=== PATIENT | female | born 1955 | race Two or more races ===

== ENCOUNTER 2017-02-22 07:32 | Emergency (ER) | payer MEDICAID ==
[2017-02-22 07:44] VITALS: BP 144/87
[2017-02-22] MEDS ORDERED: IBUPROFEN 800 MG TABLET PO ONE (08:18)
--- NOTE | 2017-02-22 08:18 | ER Document Report ---
ED General - General Chief Complaint: Arm Pain Stated Complaint: ARM PAIN Time Seen by Provider: 02/22/17 07:58 Mode of Arrival: Ambulatory Information source: Patient Notes: 61-year-old female who donated blood 1 week ago presents with complaints of bruising of her right antecubital where the blood was drawn. Patient was seen at an outside facility and they sent her in for evaluation for nerve injury versus a blood clot. Patient denies a history of blood clots denies any DVT or PE risk factors patient does note that it hurts in her fingers when she spreads and closes them and that it radiates down from her antecubital TRAVEL OUTSIDE OF THE [place] IN LAST 30 DAYS: No - HPI Onset: Last week Onset/Duration: Persistent Quality of pain: Achy Severity: Mild Pain Level: 1 Associated symptoms: None Exacerbated by: Denies Relieved by: Denies Similar symptoms previously: No Recently seen / treated by doctor: Yes - Related Data Allergies/Adverse Reactions: No Known Allergies Allergy (Verified 02/22/17 08:28) Past Medical History - Social History Smoking Status: Never Smoker Cigarette use (# per day): No Chew tobacco use (# tins/day): No Smoking Education Provided: No Family History: Reviewed & Not Pertinent Patient has suicidal ideation: No Patient has homicidal ideation: No Renal/ Medical History: Denies: Hx Peritoneal Dialysis Review of Systems - Review of Systems Notes: REVIEW OF SYSTEMS: CONSTITUTIONAL : Denies fever, chills, or sweats. Denies recent illness. EENT: Denies eye, ear, throat, or mouth pain or symptoms. Denies nasal or sinus congestion or discharge. Denies throat, tongue, or mouth swelling or difficulty swallowing. CARDIOVASCULAR: Denies chest pain. Denies palpitations or racing or irregular heart beat. Denies ankle edema. RESPIRATORY: Denies cough, cold, or chest congestion. Denies shortness of breath, difficulty breathing, or wheezing. GASTROINTESTINAL: Denies abdominal pain or distention. Denies nausea, vomiting , or diarrhea. Denies blood in vomitus, stools, or per rectum. Denies black, tarry stools. Denies constipation. GENITOURINARY: Denies difficulty urinating, painful urination, burning, frequency, blood in urine, or discharge. FEMALE GENITOURINARY: Denies vaginal bleeding, heavy or abnormal periods, irregular periods. Denies vaginal discharge or odor. MUSCULOSKELETAL: Denies back or neck pain or stiffness. Denies joint pain or swelling. SKIN: Admits to bruising of the antecubital HEMATOLOGIC : Denies easy bruising or bleeding. LYMPHATIC: Denies swollen, enlarged glands. NEUROLOGICAL: Denies confusion or altered mental status. Denies passing out or loss of consciousness. Denies dizziness or lightheadedness. Denies headache. Denies weakness or paralysis or loss of use of either side. Denies problems with gait or speech. Denies sensory loss, numbness, or tingling. Denies seizures. PSYCHIATRIC: Denies anxiety or stress. Denies depression, suicidal ideation, or homicidal ideation. ALL OTHER SYSTEMS REVIEWED AND NEGATIVE. PHYSICAL EXAMINATION: GENERAL: Well-appearing, well-nourished and in no acute distress. HEAD: Atraumatic, normocephalic. EYES: Pupils equal round and reactive to light, extraocular movements intact, conjunctiva are normal. ENT: Nares patent, oropharynx clear without exudates. Moist mucous membranes. NECK: Normal range of motion, supple without lymphadenopathy LUNGS: Breath sounds clear to auscultation bilaterally and equal. No wheezes rales or rhonchi. HEART: Regular rate and rhythm without murmurs ABDOMEN: Soft, nontender, nondistended abdomen. No guarding, no rebound. No masses appreciated. Female : deferred Musculoskeletal: Normal range of motion, no pitting or edema. No cyanosis. NEUROLOGICAL: Cranial nerves grossly intact. Normal speech, normal gait. Normal sensory, motor exams PSYCH: Normal mood, normal affect. SKIN: There is ecchymosis of the antecubital with no palpable thrombophlebitis or deep vein thrombosis Dictation was performed using [employer] voice recognition software Physical Exam - Vital signs Vitals: Temp Pulse Resp BP Pulse Ox 97.5 F 93 16 144/87 H 94 02/22/17 07:42 02/22/17 07:42 02/22/17 07:42 02/22/17 07:42 02/22/17 07:42 Course - Re-evaluation Re-evalutation: 02/22/17 13:48 Patient is having pain secondary to the swelling that is impinging on the nerve. Donating blood would not lead to a deep vein thrombosis nor would structural fitter to significant nerve injury. I believe this is all secondary to the bruising. Patient has been given very strict return precautions denies any DVT or PE risk factors and is stable for discharge After performing a Medical Screening Examination, I estimate there is LOW risk for OPEN FRACTURE, COMPARTMENT SYNDROME, TENDON RUPTURE, ACUTE NEUROVASCULAR INJURY, or RETAINED FOREIGN BODY, thus I consider the discharge disposition reasonable. Also, there is no evidence or peritonitis, sepsis, or toxicity. I have reevaluated this patient multiple times and no significant life threatening changes are noted. The patient and I have discussed the diagnosis and risks, and we agree with discharging home with close follow-up with the understanding that symptoms and presentations can change. We also discussed returning to the Emergency Department immediately if new or worsening symptoms occur. We have discussed the symptoms which are most concerning (e.g., changing or worsening pain, fever, numbness, weakness, cool or painful digits) that necessitate immediate return. - Vital Signs Vital signs: Temp Pulse Resp BP Pulse Ox 97.5 F 93 16 144/87 H 94 02/22/17 07:42 02/22/17 07:42 02/22/17 07:42 02/22/17 07:42 02/22/17 07:42 Discharge - Discharge Clinical Impression: Bruising, Neuropathy Condition: Stable Disposition: HOME, SELF-CARE Additional Instructions: Please follow-up with your primary care physician for reevaluation or return immediately for any other concerns Prescriptions: Ibuprofen 800 mg PO Q8 #30 tablet Referrals: JAYANT COCHRAN PA-C [Primary Care Provider] - Follow up as needed
== END 2017-02-22 08:43 | disposition home or self-care (01) ==
LOC: ER 07:32
DX: S50.11XA Contusion of right forearm, initial encounter (principal); Y84.7 Blood-sampling as the cause of abnormal reaction of the patient, or of later complication, without mention of misadventure at the time of the procedure; G62.9 Polyneuropathy, unspecified
CPT/HCPCS: 99283; J3490

== ENCOUNTER 2017-02-28 08:56 | Emergency (ER) | payer MEDICAID ==
--- NOTE | 2017-02-28 09:28 | ER Document Report ---
ED Flu Like - General Chief Complaint: Flu Symptoms Stated Complaint: COUGH/CHEST BURNING Time Seen by Provider: 02/28/17 09:22 Mode of Arrival: Ambulatory Information source: Patient TRAVEL OUTSIDE OF THE [place] IN LAST 30 DAYS: No - HPI Patient complains to provider of: Cough, sneezing, body aches Onset: Yesterday Timing/Duration: Persistent Quality of pain: Achy Severity: Mild Pain Level: 1 Associated symptoms: Body/muscle aches, Nonproductive cough Notes: Patient is a 61-year-old female who presents to the emergency room complaining of nasal congestion, nonproductive cough, sneezing and body aches that have been going on for the past 2-3 days, she recently moved to the area from [place] approximately 3 months ago and has not yet established primary care, she has a history of depression, she is not a smoker - Related Data Allergies/Adverse Reactions: No Known Allergies Allergy (Verified 02/28/17 09:05) Past Medical History - General Information source: Patient - Social History Smoking Status: Former Smoker Chew tobacco use (# tins/day): No Frequency of alcohol use: Rare Drug Abuse: None Family History: Reviewed & Not Pertinent Renal/ Medical History: Denies: Hx Peritoneal Dialysis Psychiatric Medical History: Reports: Hx Depression Past Surgical History: Reports: Hx Cholecystectomy - gallbladder sx in past Review of Systems - Review of Systems Constitutional: See HPI EENT: See HPI Cardiovascular: No symptoms reported Respiratory: See HPI Gastrointestinal: No symptoms reported Genitourinary: No symptoms reported Female Genitourinary: No symptoms reported Musculoskeletal: No symptoms reported Skin: No symptoms reported Hematologic/Lymphatic: No symptoms reported Neurological/Psychological: No symptoms reported -: Yes All other systems reviewed and negative Physical Exam - Vital signs Vitals: Temp Pulse Resp BP Pulse Ox 98.1 F 97 12 148/72 H 97 02/28/17 09:05 02/28/17 09:05 02/28/17 09:05 02/28/17 09:05 02/28/17 09:05 Interpretation: Normal - General General appearance: Appears well, Alert - HEENT Head: Normocephalic, Atraumatic Eyes: Normal Pupils: PERRL - Respiratory Respiratory status: No respiratory distress Chest status: Nontender Breath sounds: Normal Chest palpation: Normal - Cardiovascular Rhythm: Regular Heart sounds: Normal auscultation Murmur: No - Abdominal Inspection: Normal Distension: No distension Bowel sounds: Normal Tenderness: Nontender Organomegaly: No organomegaly - Back Back: Normal, Nontender - Extremities General upper extremity: Normal inspection, Nontender, Normal color, Normal ROM , Normal temperature General lower extremity: Normal inspection, Nontender, Normal color, Normal ROM , Normal temperature, Normal weight bearing. No: Shahriar's sign - Neurological Neuro grossly intact: Yes Cognition: Normal Orientation: AAOx4 [place] Coma Scale Eye Opening: Spontaneous [place] Coma Scale Verbal: Oriented Stephane Coma Scale Motor: Obeys Commands Stephane Coma Scale Total: 15 Speech: Normal Motor strength normal: LUE, RUE, LLE, RLE Sensory: Normal - Psychological Associated symptoms: Normal affect, Normal mood - Skin Skin Temperature: Warm Skin Moisture: Dry Skin Color: Normal Course - Re-evaluation Re-evalutation: 02/28/17 12:55 Lab and imaging findings discussed with patient which are unremarkable, initial chest x-ray showed a possible nodule in the right lung, however CTA shows no evidence of any abnormality in the lungs, patient was advised of this and discharged with instructions for follow-up, advised to return if any additional concerns, patient acknowledges understanding and agreement with this plan - Vital Signs Vital signs: Temp Pulse Resp BP Pulse Ox 98.1 F 97 12 148/72 H 97 02/28/17 09:05 02/28/17 09:05 02/28/17 09:05 02/28/17 09:05 02/28/17 09:05 - Laboratory Result Diagrams: 02/28/17 10:39 02/28/17 10:39 Laboratory results interpreted by me: 02/28/17 10:39 RDW 14.8 H Eosinophils % 13.2 H Absolute Eosinophils 1.2 H - Diagnostic Test Radiology reviewed: Image reviewed, Reports reviewed - EKG Interpretation by Me EKG shows normal: Sinus rhythm Rate: Normal Rhythm: NSR Discharge - Discharge Clinical Impression: Viral upper respiratory illness Condition: Stable Disposition: HOME, SELF-CARE Instructions: Upper Respiratory Illness ([facility]), Viral Syndrome ([facility]) Additional Instructions: Follow up with your primary care provider in one to 2 days. Return to the emergency room immediately if symptoms worsen or any additional concerns.
--- NOTE | 2017-02-28 10:12 | RADIOLOGY REPORT (SQ) ---
EXAM DESCRIPTION: CHEST PA/LAT COMPLETED DATE/TIME: 02/28/2017 10:01 am REASON FOR STUDY: cough COMPARISON: None. EXAM PARAMETERS: NUMBER OF VIEWS: two views TECHNIQUE: Digital Frontal and Lateral radiographic views of the chest acquired. RADIATION DOSE: NA LIMITATIONS: none FINDINGS: LUNGS AND PLEURA: No infiltrate or effusion. There is questionably an 8 mm nodule in the right lung laterally projected there over the tip of the scapula. This is not appreciated on the lat eral view. MEDIASTINUM AND HILAR STRUCTURES: No masses or contour abnormalities. HEART AND VASCULAR STRUCTURES: Heart normal size. No evidence for failure. BONES: No acute findings. HARDWARE: None in the chest. OTHER: No other significant finding. IMPRESSION: 1. No acute cardiopulmonary disease. 2. Questionable 8 mm nodule in the right lung. Consider CT for further evaluation. TECHNICAL DOCUMENTATION: JOB ID: [id number] [employer]- All Rights Reserved
[2017-02-28 10:57] LABS: ABSOLUTE BASOPHILS # (AUTO) 0.1 10^3/uL (0.0-0.2); ABSOLUTE EOSINOPHILS # (AUTO) 1.2 10^3/uL (0.0-0.6); ABSOLUTE LYMPHOCYTES (AUTO) 1.9 10^3/uL (0.5-4.7); ABSOLUTE MONOCYTES (AUTO) 0.6 10^3/uL (0.1-1.4); ABSOLUTE NEUT (AUTO) 5.3 10^3/uL (1.7-8.2); BASOPHILS % (AUTO) 0.8 % (0-2); EOSINOPHILS % (AUTO) 13.2 % (0-6); HEMATOCRIT 39.3 % (36.0-47.0); HEMOGLOBIN 13.5 g/dL (12.0-15.5); HGB HCT DIFFERENCE 1.2; LYMPHOCYTES % (AUTO) 21.1 % (13-45); MEAN CORPUSCULAR HEMOGLOBIN 31.8 pg (27.0-33.4); MEAN CORPUSCULAR HGB CONC 34.5 g/dL (32.0-36.0); MEAN CORPUSCULAR VOLUME 92 fl (80-97); MONOCYTES % (AUTO) 6.9 % (3-13); RED BLOOD COUNT 4.26 10^6/uL (3.72-5.28); RED CELL DISTRIBUTION WIDTH 14.8 % (11.5-14.0); WHITE BLOOD COUNT 9.1 10^3/uL (4.0-10.5)
[2017-02-28 11:24] LABS: ANION GAP 12 (5-19); BLOOD UREA NITROGEN 15 mg/dL (7-20); CALCIUM 9.9 mg/dL (8.4-10.2); CARBON DIOXIDE 26 mmol/L (22-30); CHLORIDE 103 mmol/L (98-107); CREATININE RESULT 0.59 mg/dL (0.52-1.25); GLUCOSE 82 mg/dL (75-110); POTASSIUM 4.3 mmol/L (3.6-5.0); SODIUM 141.2 mmol/L (137-145)
--- NOTE | 2017-02-28 12:49 | RADIOLOGY REPORT (SQ) ---
EXAM DESCRIPTION: CTA CHEST COMPLETED DATE/TIME: 02/28/2017 12:30 pm REASON FOR STUDY: SOB COMPARISON: Chest radiograph 02/28/2017 TECHNIQUE: CT scan of the chest performed using helical scanning technique with dynamic intravenous contrast injection. Images reviewed with lung, soft tissue and bone windows. Reconstructed coronal and sagittal MPR images reviewed. Additional 3 dimensional post-processing performed to develop Maximal Intensity Projection images (OK P). All images stored on PACS. All CT scanners at this facility use dose modulation, iterative reconstruction, and/or weight based d osing when appropriate to reduce radiation dose to as low as reasonably achievable (ALARA). [facility]: Dose Right [facility]: CareDose [facility]: Dose Right [facility]: Teradose 4D [facility]: LSEO CONTRAST TYPE AND DOSE: contrast/concentration: Isovue 370.00 mg/ml; Total Contrast Delivered: 73.0 ml; Total Saline Delivered: 105.7 ml RENAL FUNCTION: Creatinine 0.6 BUN 15 RADIATION DOSE: Up-to-date CT equipment and radiation dose reduction techniques were employed. CTDIv ol: 19.0 - 19.8 mGy. DLP: 682 mGy-cm. . LIMITATIONS: None. FINDINGS: LUNGS AND PLEURA: No masses, infiltrates, pneumothorax. No pleural effusions, calcificati ons. AORTA AND GREAT VESSELS: No aneurysm or dissection. HEART: No pericardial effusion. PULMONARY ARTERIES: No emboli visualized in the main pulmonary arteries or the segmental branches. HILAR AND MEDIASTINAL STRUCTURES: No identified masses or abnormal nodes. HARDWARE: None in the chest. UPPER ABDOMEN: No significant findings. Limited exam. THYROID AND OTHER SOFT TISSUES: No masses. No adenopathy. BONES: There are bridging osteophytes in the thoracic spine. No acute abnormality is present. 3D MIPS: Confirm above findings. OTHER: No other significant finding. IMPRESSION: 1. There is no evidence of pulmonary embolus. There is no pulmonary nodule. 2. There is thoracic spondylosis. TECHNICAL DOCUMENTATION: JOB ID: [id number] Quality ID # [id number]: Final reports with documentation of one or more dose reduction techniques (e.g., Au tomated exposure control, adjustment of the mA and/or kV according to patient size, use of iterative reconstruction technique) 2010 [employer]- All Rights Reserved
[2017-02-28 13:06] VITALS: BP 151/89
--- NOTE | 2017-02-28 13:48 | EKG REPORT ---
SEVERITY:- BORDERLINE ECG - SINUS RHYTHM LVH BY VOLTAGE NONSPECIFIC ST-T CHANGES- INFERIOR LEADS : Confirmed by: Lito Houston MD 28-Feb-2017 13:47:20
== END 2017-02-28 13:04 | disposition home or self-care (01) ==
LOC: ER 08:56
DX: J06.9 Acute upper respiratory infection, unspecified (principal)
CPT/HCPCS: 36415; 71020; 71275; 80048; 85025; 93005; 93010; 99284

== ENCOUNTER 2017-03-15 09:40 | Emergency (ER) | payer MEDICAID ==
--- NOTE | 2017-03-15 10:03 | ER Document Report ---
HPI - HPI Patient complains to provider of: ankle injury Onset: Other - 2 wks Onset/Duration: Persistent Quality of pain: Achy Pain Level: 2 Context: Patient states that she has had left ankle pain for the past 2 weeks. Patient denies any specific injury. Patient states that she may have sprained her ankle. Patient had continued pain with ambulation. Associated Symptoms: Other - Left ankle pain Exacerbated by: Standing, Movement, Walking Relieved by: Denies Similar symptoms previously: No Recently seen / treated by doctor: No - ROS ROS below otherwise negative: Yes Systems Reviewed and Negative: Yes All other systems reviewed and negative - MUSCULOSKELETAL Musculoskeletal: REPORTS: Extremity pain, Swelling - DERM Skin Color: Normal Skin Problems: None Past Medical History - General Information source: Patient - Social History Smoking Status: Never Smoker Frequency of alcohol use: None Drug Abuse: None Occupation: none Family History: Reviewed & Not Pertinent Renal/ Medical History: Denies: Hx Peritoneal Dialysis Psychiatric Medical History: Reports: Hx Depression Past Surgical History: Reports: Hx Cholecystectomy - gallbladder sx in past Vertical Provider Document - CONSTITUTIONAL Agree With Documented VS: Yes Exam Limitations: No Limitations General Appearance: WD/WN, No Apparent Distress - INFECTION CONTROL TRAVEL OUTSIDE OF THE [place] IN LAST 30 DAYS: No - HEENT HEENT: Atraumatic, Normocephalic - NECK Neck: Normal Inspection - RESPIRATORY Respiratory: No Respiratory Distress O2 Sat by Pulse Oximetry: 96 - CARDIOVASCULAR Pulses: Normal: Dorsalis pedis - MUSCULOSKELETAL/EXTREMETIES Musculoskeletal/Extremeties: MAEW, FROM, Tender - Left ankle tenderness over lateral malleolar area, Edema - 1+ left lateral ankle - NEURO Level of Consciousness: Awake, Alert, Appropriate Motor/Sensory: No Motor Deficit - DERM Integumentary: Warm, Dry, No Rash Course - Re-evaluation Re-evalutation: 03/15/17 The patient has been informed that they may have pre-hypertension or hypertension based on a blood pressure reading in the emergency department. I recommend that patient call the primary care provider listed on their discharge instructions or a physician of their choice by this week to arrange follow-up for further evaluation of possible pre-hypertension or hypertension. - Vital Signs Vital signs: Temp Pulse Resp BP Pulse Ox 97.8 F 86 18 145/79 H 96 03/15/17 09:47 03/15/17 09:47 03/15/17 09:47 03/15/17 09:47 03/15/17 09:47 - Diagnostic Test Radiology reviewed: Image reviewed, Reports reviewed Discharge - Discharge Clinical Impression: Elevated blood pressure reading Ankle sprain Qualifiers: Encounter type: initial encounter Involved ligament of ankle: unspecified ligament Laterality: left Qualified Code(s): S93.402A - Sprain of unspecified ligament of left ankle, initial encounter Condition: Stable Disposition: HOME, SELF-CARE Instructions: Ankle Stirrup Splint ([facility]), Use of Crutches ([facility]), Ice Packs ([facility] ), Sprained Ankle ([facility]) Additional Instructions: Return immediately for any new or worsening symptoms Followup with your primary care provider, call tomorrow to make a followup appointment Follow-up with orthopedic doctor for further evaluation, call today for an appointment Prescriptions: Naproxen [Naprosyn 250 Nmg Tablet] 1 tab PO BID #14 tablet Forms: Elevated Blood Pressure Referrals: [facility] [Provider Group] - Follow up tomorrow
--- NOTE | 2017-03-15 11:16 | RADIOLOGY REPORT (SQ) ---
EXAM DESCRIPTION: ANKLE LEFT COMPLETE COMPLETED DATE/TIME: 03/15/2017 10:40 am REASON FOR STUDY: left lateral ankle pain COMPARISON: None. NUMBER OF VIEWS: Three views. TECHNIQUE: AP, lateral, and oblique radiographic images acquired of the left ankle. LIMITATIONS: None. FINDINGS: MINERALIZATION: Osteopenia. BONES: No acute fracture or dislocation. Calcaneal spurs are present. JOINTS: No effusions. SOFT TISSUES: There is soft tissue swelling about the ankle. OTHER: No other significant finding. IMPRESSION: 1. Soft tissue swelling with no fracture. 2. Calcaneal spurs. TECHNICAL DOCUMENTATION: JOB ID: [id number] [employer]- All Rights Reserved
[2017-03-15 12:15] VITALS: BP 138/74
== END 2017-03-15 12:15 | disposition home or self-care (01) ==
LOC: ER 09:40
DX: S93.402A Sprain of unspecified ligament of left ankle, initial encounter (principal); R03.0 Elevated blood-pressure reading, without diagnosis of hypertension; X58.XXXA Exposure to other specified factors, initial encounter
CPT/HCPCS: 99283; 73610; L4350

== ENCOUNTER 2017-06-06 13:12 | Emergency (ER) | payer MEDICAID ==
[2017-06-06 13:18] VITALS: BP 144/92
--- NOTE | 2017-06-06 14:06 | ER Document Report ---
ED Extremity Problem, Lower - General Chief Complaint: Leg Pain Stated Complaint: KNEE PAIN Time Seen by Provider: 06/06/17 13:53 Mode of Arrival: Ambulatory Information source: Patient Notes: 61-year-old female presents to ED for right almanza pain. She states it has been present for about a month but she has not been to see anybody. She states it is worse today and it has called her to fall down about 9 times in the last several days. She walks steadily at this time. Speaks with complete sentences. She does have mild edema to both lower extremities. TRAVEL OUTSIDE OF THE [place] IN LAST 30 DAYS: No - HPI Location: Knee, Leg Occurred: Other - Month worse today Onset/Duration: Intermittent Quality of pain: Achy, Sharp Severity: Moderate Pain Level: 4 Recent injury: No Associated symptoms: Painful ambulation Exacerbated by: Movement, Walking Relieved by: Nothing - Related Data Allergies/Adverse Reactions: No Known Allergies Allergy (Verified 03/15/17 09:46) Past Medical History - General Information source: Patient - Social History Smoking Status: Former Smoker Cigarette use (# per day): No Chew tobacco use (# tins/day): No Smoking Education Provided: No Frequency of alcohol use: None - 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 denies: CAD, COPD, Hyperlipidemia Patient has suicidal ideation: No Patient has homicidal ideation: No - Past Medical History Cardiac Medical History: Reports: None Pulmonary Medical History: Reports: None EENT Medical History: Reports: None Neurological Medical History: Reports: None Endocrine Medical History: Reports: None Renal/ Medical History: Reports: None Malignancy Medical History: Reports: None GI Medical History: Reports: None Musculoskeltal Medical History: Reports Hx Arthritis, Reports Hx Musculoskeletal Deformity, Reports Hx Musculoskeletal Trauma - States she has required PT for knee and back Skin Medical History: Reports None Psychiatric Medical History: Reports: Hx Anxiety, Hx Depression Traumatic Medical History: Reports: None Infectious Medical History: Reports: None Past Surgical History: Reports: Hx Cholecystectomy - gallbladder sx in past, Hx Vascular Surgery - Vein stripping - Immunizations Hx Diphtheria, Pertussis, Tetanus Vaccination: Yes Review of Systems - Review of Systems Constitutional: No symptoms reported EENT: No symptoms reported Cardiovascular: No symptoms reported Respiratory: No symptoms reported Gastrointestinal: No symptoms reported Genitourinary: No symptoms reported Female Genitourinary: No symptoms reported Musculoskeletal: Leg swelling, Ankle swelling, Other - Right knee and lower leg pain Skin: No symptoms reported Hematologic/Lymphatic: No symptoms reported Neurological/Psychological: No symptoms reported Physical Exam - Vital signs Vitals: Temp Pulse Resp BP Pulse Ox 97.6 F 99 20 144/92 H 96 06/06/17 13:16 06/06/17 13:16 06/06/17 13:16 06/06/17 13:16 06/06/17 13:16 Interpretation: Normal - General General appearance: Appears well, Alert - HEENT Head: Normocephalic, Atraumatic Eyes: Normal Pupils: PERRL - Respiratory Respiratory status: No respiratory distress Chest status: Nontender Breath sounds: Normal Chest palpation: Normal - Cardiovascular Rhythm: Regular Heart sounds: Normal auscultation Murmur: No - Abdominal Inspection: Normal Distension: No distension Bowel sounds: Normal Tenderness: Nontender Organomegaly: No organomegaly - Back Back: Normal, Nontender - Extremities General upper extremity: Normal inspection, Nontender, Normal color, Normal ROM , Normal temperature General lower extremity: Normal color, Normal temperature. No: Shahriar's sign Knee: Tender, Pain with ROM, Patellar tendon intact, Tender joint line. No: Abrasion, Deformity, Dislocation, Drawer's test instability, Ecchymosis, Instability, Joint effusion, Laceration, Laxity with valgus stress, Laxity with varus stress, Popliteal fossa tender, Unable to bear weight Calf: Tender - Just below the knee, Other - Mild edema. No: Abrasion, Deformity , Ecchymosis - Neurological Neuro grossly intact: Yes Cognition: Normal Orientation: AAOx4 Perry Coma Scale Eye Opening: Spontaneous Stephane Coma Scale Verbal: Oriented Stephane Coma Scale Motor: Obeys Commands Perry Coma Scale Total: 15 Speech: Normal Motor strength normal: LUE, RUE, LLE, RLE Sensory: Normal - Psychological Associated symptoms: Normal affect, Normal mood - Skin Skin Temperature: Warm Skin Moisture: Dry Skin Color: Normal Course - Re-evaluation Re-evalutation: 06/06/17 15:23 Chest x-ray discussed x-ray with patient and written report given to patient pain. Patient was treated with Curt wrap and ibuprofen she was instructed on use of crutches and will be discharged home to follow-up with orthopedics. - Vital Signs Vital signs: Temp Pulse Resp BP Pulse Ox 97.6 F 99 20 144/92 H 96 06/06/17 13:16 06/06/17 13:16 06/06/17 13:16 06/06/17 13:16 06/06/17 13:16 - Diagnostic Test Radiology reviewed: Image reviewed, Reports reviewed Procedures - Immobilization Right Knee Immobilizer type: Curt wrap, Crutches Performed by: DONOVAN Post-Proc Neuro Vasc Exam: Normal Alignment checked and good: Yes Discharge - Discharge Clinical Impression: Right knee pain Qualifiers: Chronicity: unspecified Qualified Code(s): M25.561 - Pain in right knee Condition: Stable Disposition: HOME, SELF-CARE Instructions: Knee Exercise Program ([facility]) Additional Instructions: Arthralgia Arthralgia is pain in the joints. We use the word arthralgia to describe joint pain where there's no history of injury, no known joint disease, and the joints are normal to examination. Arthralgia can be a symptom of an acute illness, such as influenza, hepatitis, or serum sickness. Sometimes the joint pain comes before any other symptoms. Arthralgia can also be an early symptom of joint disease, such as rheumatoid arthritis or lupus. If arthralgia is accompanied by an acute illness that explains the joint pain, such as mononucleosis, no further testing needs to be done. When there's no clear reason for the pain, tests may be done to see if there's an inflammatory disease of the joints. The usual treatment is anti-inflammatory medication, such as ibuprofen. Joint aches can be soothed with a heating pad or hot compress. If joints remain painful more than a few days, you'll need testing and followup. Return if a joint becomes swollen, red, or severely painful. CURT WRAP: A compression dressing (curt wrap) has been placed. This helps hold the area still. It limits swelling and internal bleeding. The wrap should be comfortably snug -- not tight. You should feel a sense of pressure, but not severe pain under the wrap. Unless the physician tells you otherwise, you can adjust the wrap for comfort. If the wrap causes symptoms suggesting it's too tight -- uncomfortable pressure, swelling or discoloration beyond the wrap, numbness, or severe pain - - you must loosen the wrap. If these symptoms don't resolve promptly, return for re-evaluation. USE OF CRUTCHES: The doctor has recommended that you not bear weight at this time. You will need to use crutches. Adjust the crutches so the tops come to about two inches under the armpit while you are standing upright. Use your hands -- not your armpits -- to support your weight. To get into a chair, support yourself with one crutch on the injured side. Hold the chair with the other hand, then lower yourself while putting all your weight on the good leg. Going up stairs is `good leg up, step up, then bring up crutches and bad leg.' Down stairs is `bad leg and crutches down, then bring good leg down.' If you develop numbness or swelling in an arm or hand, you are using the crutches incorrectly. Return if you are having any problems with the crutches. ICE & ELEVATION: Apply ice packs frequently against the painful area. Many different schedules are recommended, such as "20 minutes on, 20 minutes off" or "one hour ice, two hours rest." If you need to work, you may need to go longer between ice treatments. You should plan to have the area ice packed AT LEAST one- fourth of the time. The ice should be applied over the wrap, tape, or splint, or over a layer of cloth -- not directly against the skin. Some ice bags have a built-in cloth and can be put directly on the skin. Your injured part should be elevated as much as possible over the next 48 hours. Try to keep the injury above the level of the heart. Avoid use of the injured area. Elevation and rest will decrease the swelling. USE OF [id number] IBUPROFEN: Ibuprofen (Advil, Nuprin, Medipren, Motrin IB) is a medication for fever and pain control. In addition, it has anti- inflammatory effects which may be beneficial, especially in the treatment of injuries. It's best to take ibuprofen with food. Persons with ulcer disease or allergy to aspirin should notify their physician of this before taking ibuprofen. Ibuprofen can be given every four to six hours, for a total of four doses daily. Age Pain or fever dose Antiinflammatory dose 6-8 yr 200 mg (1 tab) 200 mg (1 tab) 9-11 yr 200 mg (1 tab) 200-400 mg (1-2 tab) 11-14 yr 200-400 mg (1-2 tab) 400 mg (2 tab) 15-adult 400 mg (2 tab) 600 mg (3 tab) Acetaminophen Acetaminophen may be taken for pain relief or fever control. It's much safer than aspirin, offering a wider range of "safe" dosages. It is safe during . Some brand names are Tylenol, Panadol, Datril, Anacin 3, Tempra, and Liquiprin. Acetaminophen can be repeated every four hours. The following are maximum recommended dosages: WEIGHT Dose Drops Elixir Chewable( 80mg) (LBS.) drprs=droppers tsp=teaspoon 6 40 mg .4 ml (1/2) 6-11 80 mg .8 ml (full) 1/2 tsp 1 tab 12-16 120 mg 1 1/2 drprs 3/4 tsp 1 1/2 tabs 17-23 160 mg 2 drprs 1 tsp 2 tabs 24-30 240 mg 3 drprs 1 1/2 tsp 3 tabs 30-35 320 mg 2 tsp 4 tabs 36-41 360 mg 2 1/4 tsp 4 1 /2 tabs 42-47 400 mg 2 1/2 tsp 5 tabs 48-53 480 mg 3 tsp 6 tabs 54-59 520 mg 3 1/4 tsp 6 1 /2 tabs 60-64 560 mg 3 1/2 tsp 7 tabs 65-70 600 mg 3 3/4 tsp 7 1 /2 tabs 71-76 640 mg 4 tsp 8 tabs 77-82 720 mg 4 1/2 tsp 9 tabs 83-88 800 mg 5 tsp 10 tabs >89 pounds or adults 650 mg to 900 mg Acetaminophen can be repeated every four hours. Maximum daily dose not to exceed 4000 mg. These maximum recommended dosages are slightly higher than the dosages written on the product container, but these dosages are very safe and well below the toxic dosage for acetaminophen. FOLLOW-UP CARE: If you have been referred to a physician for follow-up care, call the physician s office for an appointment as you were instructed or within the next two days. If you experience worsening or a significant change in your symptoms, notify the physician immediately or return to the Emergency Department at any time for re-evaluation. Prescriptions: Ibuprofen 600 mg PO Q8HP PRN #20 tablet PRN Reason: Forms: Elevated Blood Pressure Referrals: [facility] ([facility]) [Provider Group] - Follow up as needed
--- NOTE | 2017-06-06 14:54 | RADIOLOGY REPORT (SQ) ---
EXAM DESCRIPTION: TIBIA FIBULA RIGHT COMPLETED DATE/TIME: 06/06/2017 2:37 pm REASON FOR STUDY: pain causing her to fall COMPARISON: None. NUMBER OF VIEWS: Two views. TECHNIQUE: Two radiographic images acquired of the right tibia and fibula to include the knee and an kle in at least one projection. LIMITATIONS: None. FINDINGS: MINERALIZATION: Normal. BONES: No acute fracture or dislocation. No worrisome bone lesions. No significant osteophytes. SOFT TISSUES: No obvious swelling or foreign body. OTHER: No other significant finding. IMPRESSION: NEGATIVE STUDY OF THE RIGHT TIBIA AND FIBULA. NO EXPLANATION FOR PAIN. TECHNICAL DOCUMENTATION: JOB ID: [id number] [employer]- All Rights Reserved
--- NOTE | 2017-06-06 14:55 | RADIOLOGY REPORT (SQ) ---
EXAM DESCRIPTION: KNEE RIGHT 4 VIEWS COMPLETED DATE/TIME: 06/06/2017 2:37 pm REASON FOR STUDY: pain causing her to fall COMPARISON: None. NUMBER OF VIEWS: Four views. TECHNIQUE: AP, lateral, and both oblique radiographic images acquired of the right knee. LIMITATIONS: None. FINDINGS: MINERALIZATION: Normal. BONES: No acute fracture or dislocation. No worrisome bone lesions. No significant osteophytes. JOINT: No effusion. No chondrocalcinosis. OTHER: No other significant finding. IMPRESSION: NEGATIVE STUDY OF THE RIGHT KNEE. NO EXPLANATION FOR PAIN. TECHNICAL DOCUMENTATION: JOB ID: [id number] [employer]- All Rights Reserved
[2017-06-06] MEDS ORDERED: IBUPROFEN 800 MG TABLET PO ONE (15:22)
== END 2017-06-06 15:44 | disposition home or self-care (01) ==
LOC: ER 13:12
DX: M25.561 Pain in right knee (principal); M79.604 Pain in right leg; R60.0 Localized edema; W19.XXXA Unspecified fall, initial encounter; Z91.81 History of falling; Z87.891 Personal history of nicotine dependence
CPT/HCPCS: 99283; 73564; 73590; J3490

== ENCOUNTER → 2017-06-12 | Outpatient (CLI) | payer MEDICAID | LOC: WI 09:43 | PROVIDERS: ATTEND Physician Assistant | DX: Z12.31 Encounter for screening mammogram for malignant neoplasm of breast (principal) | CPT/HCPCS: 77067; G0202 ==

== ENCOUNTER → 2017-12-17 | Outpatient (CLI) | payer MEDICAID ==
--- NOTE | 2017-12-17 12:21 | RADIOLOGY REPORT (SQ) ---
EXAM DESCRIPTION: FOOT LEFT COMPLETE COMPLETED DATE/TIME: 12/17/2017 11:21 am REASON FOR STUDY: LEFT FOOT PAIN M79.672 PAIN IN LEFT FOOT COMPARISON: None. NUMBER OF VIEWS: Three views. TECHNIQUE: AP, lateral and oblique radiographic images acquired of the left foot. LIMITATIONS: None. FINDINGS: MINERALIZATION: Normal. BONES: No acute fracture or dislocation. Large plantar calcaneal spur and smaller dorsal calcaneal s pur. JOINTS: No effusions. SOFT TISSUES: Calcification in the plantar fascia near the calcaneus. OTHER: No other significant finding. IMPRESSION: Calcaneal spurs. No acute abnormality. TECHNICAL DOCUMENTATION: JOB ID: [id number] [email or web address]- All Rights Reserved Reading location - IP/workstation name: [email or web address]
== END ==
LOC: OD 11:05
PROVIDERS: ATTEND Nurse Practitioner Acute Care
DX: M79.672 Pain in left foot (principal); M77.32 Calcaneal spur, left foot

== ENCOUNTER 2017-12-24 11:05 | Emergency (ER) | payer MEDICAID ==
[2017-12-24 11:21] VITALS: BP 145/84
--- NOTE | 2017-12-24 11:35 | ER Document Report ---
HPI - HPI Pain Level: 5 Notes: Patient is a 62-year-old female who presents to the ED complaining of continued left foot pain 1 month. Patient states that she was evaluated about 5 days ago and had an x-ray performed. Patient states that she does continue to have pain and is not scheduled to see a foot doctor until early January. She has been taking some Motrin for symptoms with minimal relief. The pain does not radiate. She is still able to walk without any difficulties. Pain is increased with weight bearing, however, as well as first steps in the morning. Achy pain. Denies any drug allergies. Denies any headache, fever, URI, sore throat , chest pain, palpitations, syncope, cough, shortness of breath, wheeze, dyspnea , abdominal pain, nausea/vomiting/diarrhea, urinary retention, dysuria, hematuria, loss of control of bowel or bladder, numbness/tingling, muscle paralysis/weakness, or rash. - ROS Systems Reviewed and Negative: Yes All other systems reviewed and negative - CONSTITUTIONAL Constitutional: DENIES: Fever, Chills - EENT EENT: DENIES: Sore Throat, Ear Pain, Eye problems - NEURO Neurology: DENIES: Headache, Weakness, Vision blurred, Dizzinesss / Vertigo - CARDIOVASCULAR Cardiovascular: DENIES: Chest pain - RESPIRATORY Respiratory: DENIES: Trouble Breathing, Coughing - GASTROINTESTINAL Gastrointestinal: DENIES: Abdominal Pain, Black / Bloody Stools - URINARY Urinary: DENIES: Dysuria, Urgency, Frequency - MUSCULOSKELETAL Musculoskeletal: REPORTS: Extremity pain - left foot Past Medical History - Social History Smoking Status: Former Smoker Chew tobacco use (# tins/day): No Frequency of alcohol use: None Drug Abuse: None Family History: Arthritis, CVA, DM, Hypertension, Malignancy, Thyroid Disfunction. denies: CAD, COPD, Hyperlipidemia Patient has suicidal ideation: No Patient has homicidal ideation: No Renal/ Medical History: Denies: Hx Peritoneal Dialysis Musculoskeltal Medical History: Reports Hx Arthritis, Reports Hx Musculoskeletal Deformity, Reports Hx Musculoskeletal Trauma - States she has required PT for knee and back Psychiatric Medical History: Reports: Hx Anxiety, Hx Depression Past Surgical History: Reports: Hx Cholecystectomy - gallbladder sx in past, Hx Vascular Surgery - Vein stripping - Immunizations Hx Diphtheria, Pertussis, Tetanus Vaccination: Yes Vertical Provider Document - CONSTITUTIONAL Agree With Documented VS: Yes Notes: PHYSICAL EXAMINATION: GENERAL: Well-appearing, well-nourished and in no acute distress. LUNGS: Breath sounds clear to auscultation bilaterally and equal. No wheezes rales or rhonchi. HEART: Regular rate and rhythm without murmurs, rubs, gallops. Musculoskeletal: Lt foot: No erythema, swelling, deformity, or ecchymosis noted. FROM to passive/active. Strength 5+/5. N/V intact distal. + tenderness to the plantar fascia, correlates with pain described. No bony tenderness of the foot. Achilles intact. Extremities: No cyanosis, clubbing, or edema b/l. Peripheral pulses 2+. Capillary refill less than 3 seconds. NEUROLOGICAL: Normal speech, normal gait w/o limping noted. Normal sensory, motor exams PSYCH: Normal mood, normal affect. SKIN: Warm, Dry, normal turgor, no rashes or lesions noted. - INFECTION CONTROL TRAVEL OUTSIDE OF THE [place] IN LAST 30 DAYS: No Course - Re-evaluation Re-evalutation: 12/24/17 11:33 Patient is an afebrile, well-hydrated, 62-year-old female who presents to the ED with left foot pain, suspect plantar fasciitis and heel spurs. Vitals are acceptable. PE is otherwise unremarkable for any neurovascular compromise, obvious tendon/ligament rupture, obvious fracture/dislocation, septic joint. Patient had an x-ray 5 days ago without any acute changes in her symptoms which showed heel spurs. No other labs or imaging warranted at this time based on H& P. I will send her home with prescription for naproxen. Conservative measures otherwise for symptoms. Recheck with your PCM in 3-5 days. Keep consult with specialist. Return to the ED with any worsening/concerning symptoms otherwise as reviewed discharge. Patient is in agreement. - Vital Signs Vital signs: Temp Pulse Resp BP Pulse Ox 98.3 F 76 20 145/84 H 96 12/24/17 11:13 12/24/17 11:13 12/24/17 11:13 12/24/17 11:13 12/24/17 11:13 Discharge - Discharge Clinical Impression: Left foot pain, Plantar fasciitis of left foot Condition: Stable Disposition: HOME, SELF-CARE Instructions: Plantar Fasciitis or Heel Spur ([facility]) Additional Instructions: Rest, Ice, Compression, Elevation Tylenol/ibuprofen as needed Light stretches daily Strength exercises as able Moist heat and massage may help F/u with your PCP in 3-5 days for a recheck Consider consult(s) with Orthopedics/physical therapy for ongoing/worsening symptoms Return to the ED with any worsening symptoms and/or development of fever, headache, chest pain, palpitations, syncope, shortness of breath, trouble breathing, abdominal pain, n/v/d, muscle weakness/paralysis, numbness/tingling, swelling, redness, or other worsening symptoms that are concerning to you. Prescriptions: Naproxen 500 mg PO BID PRN #30 tablet PRN Reason: Forms: Elevated Blood Pressure Referrals: MIRTA CHOE NP [Primary Care Provider] - Follow up in 3-5 days [facility] ([facility]) [Provider Group] - Follow up as needed
== END 2017-12-24 11:41 | disposition home or self-care (01) ==
LOC: ER 11:05
DX: M72.2 Plantar fascial fibromatosis (principal); M79.672 Pain in left foot; Z87.891 Personal history of nicotine dependence
CPT/HCPCS: 99283

== ENCOUNTER 2018-01-29 14:32 | Observation (INO) | payer MEDICAID ==
[2018-01-29] MEDS ORDERED: ASPIRIN 81 MG TABLET, CHEWABLE PO ONE (15:06)
--- NOTE | 2018-01-29 15:08 | ER Document Report ---
ED Medical Screen (RME) - General Chief Complaint: Palpitations Stated Complaint: HEARTRATE ISSUE Time Seen by Provider: 01/29/18 15:00 Notes: RAPID MEDICAL EVALUATION DISCLOSURE I have seen this patient as part of a Rapid Medical Evaluation and, if applicable, placed any initially appropriate orders. The patient will be seen and fully evaluated, including a full history and physical exam, by a provider ( in Main ED or Fast Track) when a room becomes available. 62-year-old female here with complaints of palpitations and syncope that occurred yesterday while she was sitting on the toilet. The symptoms lasted only a few seconds and she did not collapse and hit her head. However since then she has had chest tightness that is not worse with exertion or breathing. She does not have any shortness of breath lightheadedness diaphoresis nausea vomiting. She denies any prior history of IA hypertension diabetes hyperlipidemia. EXAM CTAB RRR TRAVEL OUTSIDE OF THE [place] IN LAST 30 DAYS: No - Related Data Allergies/Adverse Reactions: No Known Allergies Allergy (Verified 01/29/18 14:34) Past Medical History - Social History Chew tobacco use (# tins/day): No Frequency of alcohol use: None Drug Abuse: None Renal/ Medical History: Denies: Hx Peritoneal Dialysis Musculoskeltal Medical History: Reports Hx Arthritis, Reports Hx Musculoskeletal Deformity, Reports Hx Musculoskeletal Trauma - States she has required PT for knee and back Psychiatric Medical History: Reports: Hx Anxiety, Hx Depression Past Surgical History: Reports: Hx Cholecystectomy - gallbladder sx in past, Hx Vascular Surgery - Vein stripping - Immunizations Hx Diphtheria, Pertussis, Tetanus Vaccination: Yes Physical Exam - Vital signs Vitals: Temp Pulse Resp BP Pulse Ox 97.5 F 74 16 143/87 H 96 01/29/18 14:38 01/29/18 14:38 01/29/18 14:38 01/29/18 14:38 01/29/18 14:38 Course - Vital Signs Vital signs: Temp Pulse Resp BP Pulse Ox 97.5 F 74 16 143/87 H 96 01/29/18 14:38 01/29/18 14:38 01/29/18 14:38 01/29/18 14:38 01/29/18 14:38 Doctor's Discharge - Discharge Referrals: MIRTA CHOE, [employer] [facility] [Primary Care Provider] - Follow up as needed
[2018-01-29 15:41] LABS: ABSOLUTE EOSINOPHILS # (AUTO) 0.3 10^3/uL (0.0-0.6); ABSOLUTE LYMPHOCYTES (AUTO) 2.6 10^3/uL (0.5-4.7); ABSOLUTE MONOCYTES (AUTO) 0.5 10^3/uL (0.1-1.4); ABSOLUTE NEUT (AUTO) 2.2 10^3/uL (1.7-8.2); BASOPHILS % (AUTO) 0.8 % (0-2); EOSINOPHILS % (AUTO) 4.9 % (0-6); HEMATOCRIT 36.2 % (36.0-47.0); HEMOGLOBIN 12.5 g/dL (12.0-15.5); LYMPHOCYTES % (AUTO) 46.4 % (13-45); MEAN CORPUSCULAR HEMOGLOBIN 31.4 pg (27.0-33.4); MEAN CORPUSCULAR HGB CONC 34.6 g/dL (32.0-36.0); MEAN CORPUSCULAR VOLUME 91 fl (80-97); MONOCYTES % (AUTO) 8.6 % (3-13); PLATELET COUNT 245 10^3/uL (150-450); RED BLOOD COUNT 3.99 10^6/uL (3.72-5.28); RED CELL DISTRIBUTION WIDTH 13.9 % (11.5-14.0); SEGMENTED NEUTROPHILS % (AUTO) 39.3 % (42-78); TOTAL CELLS COUNTED % (AUTO) 100 %; WHITE BLOOD COUNT 5.7 10^3/uL (4.0-10.5)
[2018-01-29 15:54] LABS: ALANINE AMINOTRANSFERASE 35 U/L (9-52); ALBUMIN 4.1 g/dL (3.5-5.0); ALKALINE PHOSPHATASE 82 U/L (38-126); ANION GAP 10 (5-19); ASPARTATE AMINO TRANSFERASE 34 U/L (14-36); BILIRUBIN,DIRECT 0.2 mg/dL (0.0-0.4); BILIRUBIN,TOTAL 0.3 mg/dL (0.2-1.3); BLOOD UREA NITROGEN 13 mg/dL (7-20); CALCIUM 9.1 mg/dL (8.4-10.2); CARBON DIOXIDE 26 mmol/L (22-30); CHLORIDE 105 mmol/L (98-107); GLUCOSE 97 mg/dL (75-110); PHOSPHORUS 3.3 mg/dL (2.5-4.5); SODIUM 141.1 mmol/L (137-145); TOTAL PROTEIN 6.8 g/dL (6.3-8.2)
--- NOTE | 2018-01-29 16:16 | RADIOLOGY REPORT (SQ) ---
EXAM DESCRIPTION: CHEST 2 VIEWS COMPLETED DATE/TIME: 01/29/2018 4:07 pm REASON FOR STUDY: palpitations CP COMPARISON: 02/28/2017 two-view chest EXAM PARAMETERS: NUMBER OF VIEWS: two views TECHNIQUE: Digital Frontal and Lateral radiographic views of the chest acquired. RADIATION DOSE: NA LIMITATIONS: none FINDINGS: LUNGS AND PLEURA: No opacities, masses or pneumothorax. No pleural effusion. MEDIASTINUM AND HILAR STRUCTURES: No masses or contour abnormalities. HEART AND VASCULAR STRUCTURES: Heart normal size. No evidence for failure. BONES: No acute findings. HARDWARE: Clips right upper quadrant post cholecystectomy OTHER: No other significant finding. IMPRESSION: NO ACUTE RADIOGRAPHIC FINDING IN THE CHEST. TECHNICAL DOCUMENTATION: JOB ID: [id number] [email or web address]- All Rights Reserved Reading location - IP/workstation name: [email or web address]
--- NOTE | 2018-01-29 19:14 | ER Document Report ---
ED General - General Mode of Arrival: Ambulatory Information source: Patient TRAVEL OUTSIDE OF THE [place] IN LAST 30 DAYS: No <MK RUBIO - Last Filed: 01/29/18 19:18> <GENE ALATORRE - Last Filed: 01/30/18 00:37> - General Chief Complaint: Palpitations Stated Complaint: HEARTRATE ISSUE Time Seen by Provider: 01/29/18 15:00 Notes: Patient is a 62 year old female presenting to the emergency department accompanied by family complaining of chest pain, heart palpitations and near syncope. Patient states she was sitting on the toilet yesterday when she felt like she was going to pass out further stating she could barely move and her vision was turning black. She states her chest pain, described as chest tightness, was onset during the time she was on the toilet and has been constant since. She states she has never had symptoms like this before. Patient denies shortness of breath, lightheadedness, diaphoresis or vomiting. She further denies ever having a stress test performed. (MK RUBIO) - Related Data Allergies/Adverse Reactions: No Known Allergies Allergy (Verified 01/29/18 14:34) Past Medical History - General Information source: Patient - Social History Smoking Status: Former Smoker Chew tobacco use (# tins/day): No Frequency of alcohol use: None Drug Abuse: None Family History: Arthritis, CVA, DM, Hypertension, Malignancy, Thyroid Disfunction Patient has suicidal ideation: No Patient has homicidal ideation: No Musculoskeletal Medical History: Reports Hx Arthritis, Reports Hx Musculoskeletal Deformity, Reports Hx Musculoskeletal Trauma - States she has required PT for knee and back Psychiatric Medical History: Reports: Hx Anxiety, Hx Depression Past Surgical History: Reports: Hx Cholecystectomy - gallbladder sx in past, Hx Vascular Surgery - Vein stripping - Immunizations Hx Diphtheria, Pertussis, Tetanus Vaccination: Yes <MK RUBIO - Last Filed: 01/29/18 19:18> Review of Systems - Review of Systems Constitutional: No symptoms reported EENT: No symptoms reported Cardiovascular: See HPI, Chest pain, Palpitations Respiratory: No symptoms reported Gastrointestinal: No symptoms reported Genitourinary: No symptoms reported Female Genitourinary: No symptoms reported Musculoskeletal: No symptoms reported Skin: No symptoms reported Hematologic/Lymphatic: No symptoms reported Neurological/Psychological: No symptoms reported -: Yes All other systems reviewed and negative <MK RUBIO - Last Filed: 01/29/18 19:18> Physical Exam <MK RUBIO - Last Filed: 01/29/18 19:18> <GENE ALATORRE - Last Filed: 01/30/18 00:37> - Vital signs Vitals: Temp Pulse Resp BP Pulse Ox 97.5 F 74 16 143/87 H 96 01/29/18 14:38 01/29/18 14:38 01/29/18 14:38 01/29/18 14:38 01/29/18 14:38 - Notes Notes: GENERAL: Alert, interacts well. No acute distress. HEAD: Normocephalic, atraumatic. EYES: Pupils equal, round, and reactive to light. Extraocular movements intact. ENT: Oral mucosa moist, tongue midline. NECK: Full range of motion. Supple. Trachea midline. LUNGS: Clear to auscultation bilaterally, no wheezes, rales, or rhonchi. No respiratory distress. HEART: Regular rate and rhythm. No murmurs, gallops, or rubs. ABDOMEN: Soft, non-tender. Non-distended. Bowel sounds present in all 4 quadrants. EXTREMITIES: Moves all 4 extremities spontaneously. No edema, radial and dorsalis pedis pulses 2/4 bilaterally. No cyanosis. NEUROLOGICAL: Alert and oriented x3. Normal speech. PSYCH: Normal affect, normal mood. SKIN: Warm, dry, normal turgor. No rashes or lesions noted. (MK RUBIO) Course - Laboratory Result Diagrams: 01/29/18 15:26 01/29/18 15:26 <MK RUBIO - Last Filed: 01/29/18 19:18> - Laboratory Result Diagrams: 01/29/18 15:26 01/29/18 15:26 <GENE ALATORRE - Last Filed: 01/30/18 00:37> - Re-evaluation Re-evalutation: 01/29/18 19:25 CBC unremarkable, CMP unremarkable, troponin initially negative, TSH normal at 1.56, chest x-ray unremarkable, EKG nonischemic. Discussed with Dr. Cox who agrees to place the patient on her service in observation status on the telemetry care unit for full chest pain rule out. (GENE ALATORRE) - Vital Signs Vital signs: Temp Pulse Resp BP Pulse Ox 97.5 F 74 20 176/105 H 100 01/29/18 20:51 01/29/18 14:38 01/29/18 20:50 01/29/18 20:50 01/29/18 20:50 - Laboratory Laboratory results interpreted by me: 01/29/18 15:26 Seg Neutrophils % 39.3 L Lymphocytes % 46.4 H - EKG Interpretation by Me Additional EKG results interpreted by me: 01/29/18 19:26 EKG shows sinus bradycardia at a rate of 58, left axis deviation, LVH, T-wave inversions in lead III, T-wave flattening in aVF, poor R-wave progression per my interpretation. (GENE ALATORRE) Discharge <MK RUBIO - Last Filed: 01/29/18 19:18> - Discharge Admitting Provider: Hospitalist - [place] [facility] Admitted: Telemetry <GENE ALATORRE - Last Filed: 01/30/18 00:37> - Discharge Clinical Impression: Chest pain, rule out acute myocardial infarction Condition: Stable Disposition: ADMITTED OBSERVATION Scribe Attestation: 01/30/18 00:37 I personally performed the services described in the documentation, reviewed and edited the documentation which was dictated to the scribe in my presence, and it accurately records my words and actions. (GENE ALATORRE) Scribe Documentation - Scribe Written by Valeibe:: Kimberlee Velasquez, 01/29/2018 19:18 acting as scribe for :: Kvng <MK RUBIO - Last Filed: 01/29/18 19:18>
[2018-01-29] MEDS ORDERED: NITROGLYCERIN 0.4 MG/TAB 25 TAB/BOTTLE SL PRN (19:26)
--- NOTE | 2018-01-29 22:18 | EKG REPORT ---
SEVERITY:- ABNORMAL ECG - SINUS RHYTHM LEFT VENTRICULAR HYPERTROPHY : Confirmed by: Heather Medrano 29-Jan-2018 22:17:28
[2018-01-29] MEDS ORDERED: RISPERIDONE 1 MG TABLET PO ONE (23:00)
[2018-01-29] MEDS ORDERED: DIVALPROEX SODIUM 500 MG TAB.SR.24H PO ONE (23:00)
[2018-01-29] MEDS: HEPARIN SOD (PORCINE) 5,000 UNIT/ML 1 ML SYRINGE SUBCUT SCH (23:08)
--- NOTE | 2018-01-30 00:22 | PDOC H&P ---
History of Present Illness Admission Date/PCP: 01/29/18 19:37 MIRTA CHOE NP Patient complains of: chest pain History of Present Illness: SCOTT DAVIDSON is a 62 year old female who comes to the emergency department complaining of heart problems. Tells me that yesterday she was in the potty and felt that suddenly her 'heart stopped', felt nauseated, palpitations, her vision went dark, she did not passed out but right after he started with chest tightness has not stopped since then, pain 9/10 in intensity not improving overnight, the center of her chest, nonradiating. Not associated with diaphoresis, nausea, vomiting, dizziness, shortness of breath. Denies similar symptoms in the past. 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 Denies having any stress test in the past. Denies cough, wheezing, abdominal pain, reflux disease, changes in her bowel movements, dysuria, hematuria frequency. Yesterday she had one episode of diarrhea that resolved spontaneously. She has a good exertional tolerance and just to swim and bike with no problems EKG shows bradycardia at rate of 58, left axis deviation, LVH, T-wave inversions in lead III, T-wave flattening in aVF, poor R wave progression. Until the time of my dictations troponins 2 negative. In the ED given 4 aspirins and 1 nitroglycerin. She still complains of chest tightness Past Medical History Musculoskeltal Medical History: Reports: Arthritis Psychiatric Medical History: Reports: Depression Past Surgical History Past Surgical History: Reports: Cholecystectomy - gallbladder sx in past, Vascular Surgery - Vein stripping Social History Smoking Status: Former Smoker Past Social History Note: Patient quit smoking 10 years ago, he used to smoke 1 pack per day. 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 Family History Family History: Arthritis, CVA, DM, Hypertension, Malignancy, Thyroid Disfunction Family History: Toxin with CHF, sister with CVA at her 50s, mother with history of CVA at 62 years old with esophageal cancer. Does not know anything about her father. Parental Family History Reviewed: Yes Children Family History Reviewed: Yes Sibling(s) Family History Reviewed.: Yes Medication/Allergy Home Medications: Divalproex Sodium [Depakote] 1,000 mg PO QHS 01/29/18 Risperidone [Risperdal] 3 mg PO QHS 01/29/18 Allergies/Adverse Reactions: No Known Allergies Allergy (Verified 01/29/18 14:34) Review of Systems Review of Systems: As outlined in the HPI, all others negative Physical Exam Vital Signs: Temp Pulse Resp BP Pulse Ox 97.5 F 74 20 176/105 H 100 01/29/18 20:51 01/29/18 14:38 01/29/18 20:50 01/29/18 20:50 01/29/18 20:50 Additional comments: General appearance: Well-developed, obese, alert and cooperative, and appears to be in no acute distress Head: Normocephalic Eyes: PEERL, EOMI, vision is grossly intact. Ears: External auditory canal and tympanic membranes clear, hearing grossly intact. Nose: No nasal discharge. Throat: Oral cavity and pharynx normal. No inflammation, swelling, exudate or lesions. Neck: Neck supple, nontender without lymphadenopathy, masses or thyromegaly. Cardiac: Normal S1 and S2. No S3, S4 or murmurs. Rhythm is regular. There is no peripheral edema, cyanosis or pallor. Extremities are warm and well perfused. Capillary refill is less than 2 seconds. No carotid bruits. Thorax : Reproducible chest tightness in the mid sternal area and left chest. Lungs: Clear to auscultation and percussion without rales, rhonchi, wheezing or diminished breath sounds. Not using accessory muscles. Abdomen: Positive bowel sounds. Soft. Nondistended, nontender. No guarding or rebound. No masses. No hepatosplenomegaly Extremities: No significant deformity or joint abnormality. No edema. Peripheral pulses intact. No varicosities. Neurological: Cranial nerves II through XII grossly intact. Strength and sensation symmetric and intact throughout. Reflexes 2+ throughout. Skin: Skin normal color, texture and turgor with no lesions or eruptions, warm and dry. Psychiatric: The mental examination revealed the patient was oriented to person , place, and time. The patient was able to demonstrate good judgment on recent , without hallucinations, abnormal affect or abnormal behaviors. Results Laboratory Results: 01/29/18 20:20 Troponin I < 0.012 01/29/18 01/29/18 01/29/18 15:26 15:26 15:26 WBC 5.7 RBC 3.99 Hgb 12.5 Hct 36.2 MCV 91 Seg Neutrophils % 39.3 L Lymphocytes % 46.4 H Absolute Neutrophils 2.2 Sodium 141.1 Potassium 4.0 Chloride 105 Carbon Dioxide 26 Anion Gap 10 BUN 13 Creatinine 0.55 Est GFR ( Amer) > 60 Est GFR (Non-Af Amer) > 60 Glucose 97 Calcium 9.1 Phosphorus 3.3 Magnesium 2.1 Total Bilirubin 0.3 Direct Bilirubin 0.2 AST 34 ALT 35 Alkaline Phosphatase 82 Troponin I < 0.012 Total Protein 6.8 Albumin 4.1 01/29/18 20:20 WBC RBC Hgb Hct MCV Seg Neutrophils % Lymphocytes % Absolute Neutrophils Sodium Potassium Chloride Carbon Dioxide Anion Gap BUN Creatinine Est GFR ( Amer) Est GFR (Non-Af Amer) Glucose Calcium Phosphorus Magnesium Total Bilirubin Direct Bilirubin AST ALT Alkaline Phosphatase Troponin I < 0.012 Total Protein Albumin EKG Comments: EKG: Bradycardia at the rate of 58, left axis deviation, LVH, T-wave inversion in lead III, T-wave flattening in aVF, poor R-wave progression Impressions: Chest X-Ray 01/29/18 15:05 IMPRESSION: NO ACUTE RADIOGRAPHIC FINDING IN THE CHEST. Assessment & Plan - Diagnosis (1) Chest pain, rule out acute myocardial infarction Plan: Patient comes with chest tightness, no history of coronary disease. We will go ahead and keep the patient under telemetry monitoring, cardiac markers total of 3, a stress test tomorrow. Nitroglycerin sublingual as needed. - Plan Summary Plan Summary: Follows with family care, nonspecific PCP
[2018-01-30 03:36] LABS: ANION GAP 11 (5-19); BLOOD UREA NITROGEN 14 mg/dL (7-20); CALCIUM 9.1 mg/dL (8.4-10.2); CARBON DIOXIDE 24 mmol/L (22-30); CHLORIDE 109 mmol/L (98-107); GLUCOSE 83 mg/dL (75-110); POTASSIUM 4.5 mmol/L (3.6-5.0); SODIUM 143.5 mmol/L (137-145)
[2018-01-30] MEDS: HEPARIN SOD (PORCINE) 5,000 UNIT/ML 1 ML SYRINGE SUBCUT SCH ×2 (06:10→14:09)
[2018-01-30 09:28] LABS: CHOLESTEROL 162.54 mg/dL (0-200); TRIGLYCERIDES 48 mg/dL (<150)
[2018-01-30 09:39] LABS: DIRECT LDL 88 mg/dL (<100)
--- NOTE | 2018-01-30 14:53 | PDOC DISCHARGE SUMMARY ---
General - Admit/Disc Date/PCP Admission Date/Primary Care Provider: 01/29/18 19:37 MIRTA CHOE NP Discharge Date: 01/30/18 - Additional Information Home Medications: Divalproex Sodium [Depakote] 1,000 mg PO QHS 01/29/18 Risperidone [Risperdal] 3 mg PO QHS 01/29/18 History of Present Illness History of Present Illness: SCOTT DAVIDSON is a 62 year old female who comes to the emergency department complaining of heart problems. Tells me that yesterday she was in the potty and felt that suddenly her 'heart stopped', felt nauseated, palpitations, her vision went dark, she did not passed out but right after he started with chest tightness has not stopped since then, pain 9/ 10 in intensity not improving overnight, the center of her chest, nonradiating. Not associated with diaphoresis, nausea, vomiting, dizziness, shortness of breath. Denies similar symptoms in the past. 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 Denies having any stress test in the past. Denies cough, wheezing, abdominal pain, reflux disease, changes in her bowel movements, dysuria, hematuria frequency. Yesterday she had one episode of diarrhea that resolved spontaneously. She has a good exertional tolerance and just to swim and bike with no problems EKG shows bradycardia at rate of 58, left axis deviation, LVH, T-wave inversions in lead III, T-wave flattening in aVF, poor R wave progression. Until the time of my dictations troponins 2 negative. In the ED given 4 aspirins and 1 nitroglycerin. She still complains of chest tightness Hospital Course Hospital Course: Mr. Davidson is 6 years old female patient presents with chief complaint of chest pain. Patient does not have previous cardiac history. Patient admitted for observation to rule out acute coronary syndrome. Her EKG is not revealing 3 sets of cardiac enzymes are negative. Patient remained chest pain- free. This morning she has cardiac stress test and the results pending. If the stress test is negative patient can be discharged safely and follow-up with her primary care physician. This afternoon I seen and examined the patient at bedside while she sitting. She is awake alert oriented she is not in pain or any form of cardiorespiratory distress. Physical Exam Vital Signs: Temp Pulse Resp BP Pulse Ox 98.3 F 72 18 132/82 H 98 01/30/18 11:30 01/30/18 14:00 01/30/18 11:30 01/30/18 11:30 01/30/18 11:30 General appearance: PRESENT: no acute distress, well-developed, well-nourished Head exam: PRESENT: atraumatic, normocephalic Eye exam: PRESENT: conjunctiva pink, EOMI, PERRLA. ABSENT: scleral icterus Ear exam: PRESENT: normal external ear exam Mouth exam: PRESENT: moist, tongue midline Neck exam: ABSENT: carotid bruit, JVD, lymphadenopathy, thyromegaly Respiratory exam: PRESENT: clear to auscultation helen. ABSENT: rales, rhonchi, wheezes Cardiovascular exam: PRESENT: RRR. ABSENT: diastolic murmur, rubs, systolic murmur Pulses: PRESENT: normal dorsalis pedis pul Vascular exam: PRESENT: normal capillary refill GI/Abdominal exam: PRESENT: normal bowel sounds, soft. ABSENT: distended, guarding, mass, organolmegaly, rebound, tenderness Rectal exam: PRESENT: deferred Extremities exam: PRESENT: full ROM. ABSENT: calf tenderness, clubbing, pedal edema Neurological exam: PRESENT: alert, awake, oriented to person, oriented to place , oriented to time, oriented to situation. ABSENT: motor sensory deficit Psychiatric exam: PRESENT: appropriate affect, normal mood. ABSENT: homicidal ideation, suicidal ideation Skin exam: PRESENT: dry, intact, warm. ABSENT: cyanosis, rash Results Laboratory Results: 01/30/18 03:09 01/30/18 01/30/18 03:09 08:46 Sodium 143.5 Potassium 4.5 Chloride 109 H Carbon Dioxide 24 Anion Gap 11 BUN 14 Creatinine 0.58 Est GFR ( Amer) > 60 Est GFR (Non-Af Amer) > 60 Glucose 83 Calcium 9.1 Triglycerides 48 Cholesterol 162.54 LDL Cholesterol Direct 88 VLDL Cholesterol 10.0 HDL Cholesterol 58 01/29/18 01/30/18 01/30/18 20:20 03:09 08:46 Troponin I < 0.012 < 0.012 < 0.012 Impressions: Chest X-Ray 01/29/18 15:05 IMPRESSION: NO ACUTE RADIOGRAPHIC FINDING IN THE CHEST. Qualifiers - * PATIENT BEING DISCHARGED WITH ANY OF THE FOLLOWING DIAGNOSIS: No
--- NOTE | 2018-01-30 15:27 | DRAGON STRESS TEST REPORT ---
EXERCISE CARDIOLITE STRESS TEST USING SINGLE PHOTON EMMISION COMPUTERIZED TOMOGRAPHIC. DATE OF PROCEDURE: January 30, 2018, INDICATION : Chest pain RESTING EKG: Sinus rhythm without any baseline ST-T wave changes STRESS EKG: No significant ST segment changes noted with exercise. PROCEDURE REPORT: Baseline heart rate 85 beats per minute with blood pressure of 119/87. Patient had no significant complaints. Patient was exercised on standard Aidan protocol. Patient exercised for a total of 6 minutes on standard Aidan protocol. Exercise was stopped because of fatigue and tiredness. No significant EKG changes were noted. Patient had no significant complaints during the procedure or postprocedure. CONCLUSIONS: No significant EKG changes with exercise. Peak heart rate response was adequate at 100% of predicted maximum. Blood pressure was somewhat suboptimal but still adequate at 142/66, double product was adequate. Peak heart rate noted to be 160 with peak blood pressure of 142/66 NUCLEAR DATA: At rest the patient was given 13.14 millicuries of technetium 99 sestamibi injected intravenously. As per protocol rest gated SPECT images were obtained. Subsequently the stress dose of 36.4 millicuries of technetium 99 sestamibi was injected intravenously at peak exercise. As per protocol stress gated images were obtained. NUCLEAR INTERPRETATION: Both raw and processed data were used for interpretation. Visual, qualitative, computer-generated quantitative data was used. There was good myocardial uptake of technetium compound. Motion artifact and soft tissue attenuations were noted. Increased visceral uptake was noted. No definitive areas of transient perfusion defect noted, No definitive areas of fixed perfusion defect or scars noted. EKG gated imaging showed LV EF at 45 %, rest and stress gated EF similar visually. T. I D. ratio was 1.28. Lung heart ratio noted to be within normal limits 0.26. No significant extracardiac and abnormal radiotracer activities were noted except for increased uptake noted in the left axilla. RV free wall uptake was noted to be WNL. IMPRESSION: Also refer to comments under nuclear interpretation. Also test results needs to be interpreted in the context of pretest probability. 1. No definitive areas of transient perfusion defect noted. 2. There is no definitive scintigraphic evidence of myocardial infarction/scar. 3. EKG gated imaging shows left ventricular ejection fraction of approx. 45 %. Recommend correlation with 2D echocardiogram. 4. Increased uptake noted in the left axilla. Recommend examining the left axilla, could be residual contrast agent in the left axillary vein but cannot rule out left axillary venous thrombosis. 5. Exercise tolerance was noted to be average. RECOMMENDATIONS: Examining the left axilla, consider ultrasound of the left axilla. Aggressive risk factor modification and medical management. Further evaluation may be needed if continued symptoms or other high risk indicators are noted on clinical evaluation. Close cardiology follow-up is also recommended. Clinical correlation with echocardiogram derived ejection fraction. Inability to exercise by itself can lead to increased cardiovascular event risks. Consider cardiology consultation and or follow-up if clinically indicated. I am available for cardiology evaluation and consultation if requested by the dietary tech, unless patient already has a stock counter. Dr. Andrés Medrano. MRCP Board certified in cardiology and sleep medicine. Board certified in nuclear cardiology, adult echocardiography. JAMES
[2018-01-30 16:30] VITALS: BP 138/73
--- NOTE | 2018-01-30 18:10 | RADIOLOGY REPORT (SQ) ---
EXAM DESCRIPTION: VENOUS UNILATERAL UPPER COMPLETED DATE/TIME: 01/30/2018 5:11 pm REASON FOR STUDY: R/O Axillary vein DVT COMPARISON: None. TECHNIQUE: Dynamic and static tanner scale and color images acquired of the left arm venous system. Se lected spectral images acquired with additional compression and augmentation maneuvers. The contralat eral subclavian vein and internal jugular vein were also imaged. Images stored on PACS. LIMITATIONS: None. FINDINGS: INTERNAL JUGULAR VEIN: Normal phasicity, compression, augmentation. No visualized echogeni c material on tanner scale. No defects on color images. Comparison opposite side normal. SUBCLAVIAN VEIN: Normal compression, augmentation. No visualized echogenic material on tanner scale. No defects on color images. AXILLARY VEIN: Normal compression, augmentation. No visualized echogenic material on tanner scale. No d efects on color images. BRACHIAL VEIN: Normal compression, augmentation. No visualized echogenic material on tanner scale. No d efects on color images. BASILIC VEIN: Normal compression, augmentation. No visualized echogenic material on tanner scale. No de fects on color images. CEPHALIC VEIN: Normal compression, augmentation. No visualized echogenic material on tanner scale. No d efects on color images. OTHER: No other significant finding. CONTRALATERAL SUBCLAVIAN VEIN AND INTERNAL JUGULAR VEIN: Normal phasicity, compression and augmentation. No visualized echogenic material on tanner scale. No de fects on color images. IMPRESSION: NO EVIDENCE DVT OR SVT RIGHT OR LEFT ARM. TECHNICAL DOCUMENTATION: JOB ID: [id number] [id number] [employer]- All Rights Reserved Reading location - IP/workstation name: [email or web address]
[2018-01-30] MEDS ORDERED: DIVALPROEX SODIUM 500 MG TAB.SR.24H PO SCH (22:00)
[2018-01-30] MEDS ORDERED: RISPERIDONE 1 MG TABLET PO SCH (22:00)
== END 2018-01-30 17:35 | disposition home or self-care (01) ==
LOC: ER 14:32 → EH 19:37 → 5 21:50
PROVIDERS: ADMIT Internal Medicine; ATTEND Internal Medicine
DX: R07.89 Other chest pain (principal); R00.2 Palpitations; R55 Syncope and collapse; R11.0 Nausea; R19.7 Diarrhea, unspecified; R00.1 Bradycardia, unspecified; Z87.891 Personal history of nicotine dependence; Z90.49 Acquired absence of other specified parts of digestive tract; Z82.49 Family history of ischemic heart disease and other diseases of the circulatory system; Z80.0 Family history of malignant neoplasm of digestive organs
CPT/HCPCS: 93005; 99285; 36415 ×2; 83735; 84100; 84443; 85025; 80048; 80053; 84484 ×2; 80061; 93971; 93017; 71046; 78452; 93010; G0378 ×3; A9500; J1644 ×2; J3490 ×3; Q9969

== ENCOUNTER 2018-07-26 16:25 | Emergency (ER) | payer MEDICAID ==
--- NOTE | 2018-07-26 17:37 | ER Document Report ---
HPI - HPI Patient complains to provider of: left foot pain Time Seen by Provider: 07/26/18 17:36 Onset: Other - one month ago Quality of pain: Achy Severity: Severe Pain Level: 5 Context: pt reports to the ED for complaints of left anterior foot pain for one month. Denies trauma, reports it just started hurting. reports she hurt a foot before but is not sure what foot it was. No other symptoms such as fever/n/v. did not take anything for pain, requesting motrin. Associated Symptoms: None Exacerbated by: Walking Relieved by: Denies Similar symptoms previously: No Recently seen / treated by doctor: No - REPRODUCTIVE Reproductive: DENIES: : Past Medical History - General Information source: Patient - Social History Smoking Status: Former Smoker Cigarette use (# per day): No Frequency of alcohol use: None Drug Abuse: None Family History: Arthritis, CVA, DM, Hypertension, Malignancy, Thyroid Disfunction Patient has suicidal ideation: No Patient has homicidal ideation: No Renal/ Medical History: Denies: Hx Peritoneal Dialysis Musculoskeletal Medical History: Reports Hx Arthritis, Reports Hx Musculoskeletal Deformity, Reports Hx Musculoskeletal Trauma - States she has required PT for knee and back Psychiatric Medical History: Reports: Hx Anxiety, Hx Depression Past Surgical History: Reports: Hx Cholecystectomy - gallbladder sx in past, Hx Vascular Surgery - Vein stripping - Immunizations Hx Diphtheria, Pertussis, Tetanus Vaccination: Yes Vertical Provider Document - CONSTITUTIONAL Agree With Documented VS: Yes Exam Limitations: No Limitations General Appearance: WD/WN, Mild Distress - limping with ambulation - INFECTION CONTROL TRAVEL OUTSIDE OF THE [place] IN LAST 30 DAYS: No - HEENT HEENT: Atraumatic, Normocephalic - NECK Neck: Supple - RESPIRATORY Respiratory: No Respiratory Distress - CARDIOVASCULAR Cardiovascular: Regular Rate - MUSCULOSKELETAL/EXTREMETIES Musculoskeletal/Extremeties: MAEW, FROM, Tender - left anterior proximal foot ttp, no obvious swelling, no deformity, good pedal pulse, good cap refill. denies plantar pain. reports increased pain with ambulating - NEURO Level of Consciousness: Awake, Alert, Appropriate Motor/Sensory: No Motor Deficit - DERM Integumentary: Warm, Dry Adult Front & Back Diagram: 1 - c/o pain Course - Re-evaluation Re-evalutation: 07/26/18 17:49 Patient reports she is not taking anything for pain Motrin ordered. Patient sent x-ray. Dictation of this chart was performed using voice recognition software; therefore, there may be some unintended grammatical errors. 07/26/18 18:56 Patient instructed on x-ray. Instructed on follow-up with rig site engineer. Patient reports she has been sent to physical therapy she thinks for the same thing. She is unsure. She is requesting a prescription for Motrin which was provided. She reports Medicaid takes care of the cost. - Vital Signs Vital signs: Temp Pulse Resp BP Pulse Ox 98.1 F 83 16 154/90 H 96 07/26/18 16:36 07/26/18 16:36 07/26/18 16:36 07/26/18 16:36 07/26/18 16:36 - Diagnostic Test Radiology reviewed: Image reviewed, Reports reviewed - EXAM DESCRIPTION: FOOT LEFT COMPLETE COMPLETED DATE/TIME: 07/26/2018 5:45 pm REASON FOR STUDY: pain pain all over COMPARISON: None. NUMBER OF VIEWS: Three views. TECHNIQUE: AP, lateral and oblique without weight bearing radiographic images acquired of the left foot. LIMITATIONS: None. FINDINGS: MINERALIZATION: Normal. BONES: No acute fracture or dislocation. No worrisome bone lesions. Plantar enthesophyte. JOINTS: No erosions. No julianne-articular osteopenia. No chondrocalcinosis. SOFT TISSUES: No swelling. No calcifications. OTHER: No other significant finding. IMPRESSION: Plantar enthesophyte. No acute fracture. Discharge - Discharge Clinical Impression: Left foot pain Condition: Stable Disposition: HOME, SELF-CARE Instructions: Use of Rwjl-Oao-Oqjpzpy Ibuprofen ([facility]) Additional Instructions: *You have been evaluated for left foot pain *The xray showed enthesophyte. This occurs in an area where tendons/ligaments attach to the bone. Pain can occur when this area is stressed and with arthr itis *Rest/Ice/Elevate *Follow up with a rig site engineer, call for an appointment *Take ibuprofen as indicated for pain *Return to ED for worsening condition, changes, needs Monitor your blood pressure. Your blood pressure was elevated today. This may be because you were anxious, in pain or because you need medication. It is important to follow up with your primary care provider for full evaluation. Prescriptions: Ibuprofen [Motrin 800 mg Tablet] 800 mg PO TID #30 tablet Forms: Elevated Blood Pressure Referrals: MIRTA CHOE NP [Primary Care Provider] - Follow up in 1 week [facility] [Provider Group] - Follow up in 1 week (call for an appointment)
[2018-07-26] MEDS ORDERED: IBUPROFEN 800 MG TABLET PO ONE (17:40)
--- NOTE | 2018-07-26 18:05 | RADIOLOGY REPORT (SQ) ---
EXAM DESCRIPTION: FOOT LEFT COMPLETE COMPLETED DATE/TIME: 07/26/2018 5:45 pm REASON FOR STUDY: pain pain all over COMPARISON: None. NUMBER OF VIEWS: Three views. TECHNIQUE: AP, lateral and oblique without weight bearing radiographic images acquired of the left f oot. LIMITATIONS: None. FINDINGS: MINERALIZATION: Normal. BONES: No acute fracture or dislocation. No worrisome bone lesions. Plantar enthesophyte. JOINTS: No erosions. No julianne-articular osteopenia. No chondrocalcinosis. SOFT TISSUES: No swelling. No calcifications. OTHER: No other significant finding. IMPRESSION: Plantar enthesophyte. No acute fracture. TECHNICAL DOCUMENTATION: JOB ID: [id number] [employer]- All Rights Reserved Reading location - IP/workstation name: [email or web address]
[2018-07-26 18:36] VITALS: BP 142/86
== END 2018-07-26 18:42 | disposition home or self-care (01) ==
LOC: ER 16:25
DX: M79.672 Pain in left foot (principal); Z90.49 Acquired absence of other specified parts of digestive tract
CPT/HCPCS: 99283; 73630; J3490

== ENCOUNTER 2018-08-29 21:37 | Emergency (ER) | payer MEDICAID ==
[2018-08-29 22:42] VITALS: BP 148/90
--- NOTE | 2018-08-29 23:15 | ER Document Report ---
HPI - HPI Time Seen by Provider: 08/29/18 23:03 Pain Level: 5 Notes: Patient is a 62-year-old female who presents to the emergency department with complaints of pain and itching to her left eye. Patient denies use of any contact lenses, denies any injury to the eye. Does report some mild drainage. - REPRODUCTIVE Reproductive: DENIES: : Past Medical History - General Information source: Patient - Social History Smoking Status: Never Smoker Frequency of alcohol use: None Drug Abuse: None Family History: Arthritis, CVA, DM, Hypertension, Malignancy, Thyroid Disfunction Renal/ Medical History: Denies: Hx Peritoneal Dialysis Musculoskeletal Medical History: Reports Hx Arthritis, Reports Hx Musculoskeletal Deformity, Reports Hx Musculoskeletal Trauma - States she has required PT for knee and back Psychiatric Medical History: Reports: Hx Anxiety, Hx Depression Past Surgical History: Reports: Hx Cholecystectomy - gallbladder sx in past, Hx Vascular Surgery - Vein stripping - Immunizations Hx Diphtheria, Pertussis, Tetanus Vaccination: Yes Vertical Provider Document - CONSTITUTIONAL Notes: PHYSICAL EXAMINATION: GENERAL: Well-appearing, well-nourished and in no acute distress. HEAD: Atraumatic, normocephalic. EYES: Pupils equal round extraocular movements intact, conjunctiva are normal, stye noted to left lower lid on the external surface. ENT: Nares patent NECK: Normal range of motion LUNGS: No respiratory distress Musculoskeletal: Normal range of motion NEUROLOGICAL: Normal speech, normal gait. PSYCH: Normal mood, normal affect. SKIN: Warm, Dry, normal turgor, no rashes or lesions noted. - INFECTION CONTROL TRAVEL OUTSIDE OF THE [place] IN LAST 30 DAYS: No Course - Re-evaluation Re-evalutation: Patient's physical examination is consistent with a stye to the left eye. A thorough visual exam was performed using fluorescein stain and the Haley lamp. There was no uptake of the floor seen therefore no evidence of corneal abrasion. Patient will be placed on erythromycin ointment and instructed to apply warm compresses multiple times daily as outlined in her discharge papers. Patient already has an appointment scheduled with [facility] for next week, I encouraged her to call let them know that she was seen in the emergency department and see if they can move up her appointment. ED return precautions were discussed. - Vital Signs Vital signs: Temp Pulse Resp BP Pulse Ox 98.4 F 80 16 148/90 H 97 08/29/18 22:38 08/29/18 22:38 08/29/18 22:38 08/29/18 22:38 08/29/18 22:38 Discharge - Discharge Clinical Impression: Hordeolum externum (stye) Qualifiers: Laterality: left Eyelid: lower Qualified Code(s): H00.015 - Hordeolum externum left lower eyelid Condition: Stable Disposition: HOME, SELF-CARE Additional Instructions: Sty Your examination reveals that you have a sty. This is an infection of a hair follicle in the eyelid. As the infection progresses, it forms an abscess along the edge of the eyelid. A sty causes a lot of swelling and tenderness. As the body fights the infection, a lump forms. The knot slowly goes away over a couple of weeks. Treatment includes applying warm compresses to the eye for 10 to 15 minutes every two or three hours. Usually, the infection will drain from the abscess spontaneously, however, some sties require surgical drainage. You may be given antibiotic eye drops to prevent the infection from spreading to the surface of the eye. If the doctor is concerned that the infection is severe, you may be given antibiotics by mouth or shot. Call the doctor at once if vision decreases, if swelling becomes severe, or if eye pain becomes severe. See the doctor for follow-up should you fail to improve as expected. Please take the antibiotic eye ointment as prescribed. Place in the lower lid of both eyes 4 times daily. Please call [facility] tomorrow and ask them if they can move your appointment up. Let them know you are seen in the emergency department with bilateral eye pain and were diagnosed with a stye. Return to the emergency department if you experience worsening blurred vision, increased swelling or increased eye pain. Referrals: BINTA RAMIREZ MD [ACTIVE STAFF] - Follow up as needed
[2018-08-29] MEDS ORDERED: TETRACAINE HCL 0.5% OPH SOLN 4 ML OU ONE (23:33)
[2018-08-30] MEDS ORDERED: ERYTHROMYCIN 0.5% OPH OINTMENT 3.5 GM TUBE OU ONE (00:16)
[2018-08-30] MEDS ORDERED: ERYTHROMYCIN 0.5% OPH OINTMENT 3.5 GM (ER DISP) OU PRN (00:34)
== END 2018-08-30 00:57 | disposition home or self-care (01) ==
LOC: ER 21:37
DX: H00.015 Hordeolum externum left lower eyelid (principal)
CPT/HCPCS: 99283; J3490

== ENCOUNTER 2019-07-13 07:09 | Emergency (ER) | payer MEDICAID ==
[2019-07-13 08:16] LABS: ABSOLUTE BASOPHILS # (AUTO) 0.1 10^3/uL (0.0-0.2); ABSOLUTE EOSINOPHILS # (AUTO) 0.4 10^3/uL (0.0-0.6); ABSOLUTE LYMPHOCYTES (AUTO) 1.8 10^3/uL (0.5-4.7); ABSOLUTE MONOCYTES (AUTO) 0.4 10^3/uL (0.1-1.4); ABSOLUTE NEUT (AUTO) 2.3 10^3/uL (1.7-8.2); BASOPHILS % (AUTO) 1.5 % (0-2); EOSINOPHILS % (AUTO) 8.6 % (0-6); HEMATOCRIT 38.6 % (36.0-47.0); HEMOGLOBIN 13.3 g/dL (12.0-15.5); LYMPHOCYTES % (AUTO) 35.8 % (13-45); MEAN CORPUSCULAR HEMOGLOBIN 31.8 pg (27.0-33.4); MEAN CORPUSCULAR HGB CONC 34.4 g/dL (32.0-36.0); MEAN CORPUSCULAR VOLUME 92 fl (80-97); MONOCYTES % (AUTO) 8.2 % (3-13); PLATELET COUNT 242 10^3/uL (150-450); RED BLOOD COUNT 4.18 10^6/uL (3.72-5.28); SEGMENTED NEUTROPHILS % (AUTO) 45.9 % (42-78); TOTAL CELLS COUNTED % (AUTO) 100 %; WHITE BLOOD COUNT 4.9 10^3/uL (4.0-10.5)
[2019-07-13 08:34] LABS: ALBUMIN 4.1 g/dL (3.5-5.0); ALKALINE PHOSPHATASE 76 U/L (38-126); ANION GAP 10 (5-19); ASPARTATE AMINO TRANSFERASE 24 U/L (14-36); BILIRUBIN,DIRECT 0.1 mg/dL (0.0-0.4); BILIRUBIN,TOTAL 0.4 mg/dL (0.2-1.3); BLOOD UREA NITROGEN 11 mg/dL (7-20); CALCIUM 9.3 mg/dL (8.4-10.2); CARBON DIOXIDE 25 mmol/L (22-30); CHLORIDE 107 mmol/L (98-107); CREATINE KINASE 87 U/L (30-135); GLUCOSE 104 mg/dL (75-110)
--- NOTE | 2019-07-13 09:07 | RADIOLOGY REPORT (SQ) ---
EXAM DESCRIPTION: CHEST 2 VIEWS COMPLETED DATE/TIME: 07/13/2019 8:24 am REASON FOR STUDY: chest pain/cough COMPARISON: 01/29/2018 TECHNIQUE: Frontal and lateral radiographic views of the chest acquired. NUMBER OF VIEWS: Two view. LIMITATIONS: None. FINDINGS: LUNGS AND PLEURA: No opacities, masses or pneumothorax. No pleural effusion. MEDIASTINUM AND HILAR STRUCTURES: No masses or contour abnormalities. HEART AND VASCULAR STRUCTURES: Heart normal size. No evidence for failure. BONES: No acute findings. HARDWARE: None in the chest. OTHER: No other significant finding. IMPRESSION: NO SIGNIFICANT RADIOGRAPHIC FINDING IN THE CHEST. TECHNICAL DOCUMENTATION: JOB ID: [id number] [email or web address]- All Rights Reserved Reading location - IP/workstation name: [email or web address]
--- NOTE | 2019-07-13 09:08 | ER Document Report ---
ED General - General Chief Complaint: Cold Symptoms Stated Complaint: COUGH Primary Care Provider: NADINE DIANE FNP-C [Primary Care Provider] - Follow up tomorrow JEFFRY ZAIDI MD [ACTIVE STAFF] - Follow up in 3-5 days (1-2 days) TRAVEL OUTSIDE OF THE [place] IN LAST 30 DAYS: No - HPI Notes: 63-year-old female with a history of depression presents to the emergency room for complaints of cough, wheezing for the last 2 weeks has become progressively worse. Patient reports she has had intermittent chest pain for the last 2 weeks however her chest pain did become worse yesterday, mostly when she coughs patient denies a history of cardiovascular disease, former smoker over 10 years ago. Patient reports productive cough, color roughly brown and green. Denies hemoptysis. denies any clotting disorders or blood dyscrasias , is not on blood thinners. Patient reports she just started with a productive cough today. Patient did not get her flu shot. Reports mother from cancer, patient does not know father's past medical history. Eating and drinking without issues. The only medication patient takes is Depakote and Risperdal for her depression and she is seen at [facility]. Denies a history of asthma but does report having seasonal allergies. Denies fevers, chills, palpitations, shortness of breath, dyspnea, nausea, vomiting, diarrhea, abdominal pain, hematuria,blurred vision, double vision, loss of vision, speech changes, LH, dizziness, syncope, headaches, wheezing, ST, URI, neck pain, weakness, bowel or bladder dysfunction, saddle anesthesia, numbness or tingling in bilateral upper or lower extremities equally, muscle paralysis, weakness in bilateral upper or lower extremities equally or rash. - Related Data Allergies/Adverse Reactions: No Known Allergies Allergy (Verified 01/29/18 14:34) Past Medical History - General Information source: Patient - Social History Smoking Status: Former Smoker Chew tobacco use (# tins/day): No Frequency of alcohol use: None Drug Abuse: None Family History: Arthritis, CVA, DM, Hypertension, Malignancy, Thyroid Disfunction Patient has suicidal ideation: No Patient has homicidal ideation: No Renal/ Medical History: Denies: Hx Peritoneal Dialysis Musculoskeletal Medical History: Reports Hx Arthritis, Reports Hx Musculoskeletal Deformity, Reports Hx Musculoskeletal Trauma - States she has required PT for knee and back Psychiatric Medical History: Reports: Hx Anxiety, Hx Depression Past Surgical History: Reports: Hx Cholecystectomy - gallbladder sx in past, Hx Vascular Surgery - Vein stripping - Immunizations Hx Diphtheria, Pertussis, Tetanus Vaccination: Yes Review of Systems - Review of Systems Constitutional: No symptoms reported EENT: No symptoms reported Cardiovascular: See HPI Respiratory: See HPI Gastrointestinal: No symptoms reported Genitourinary: No symptoms reported Female Genitourinary: No symptoms reported Musculoskeletal: No symptoms reported Skin: No symptoms reported Hematologic/Lymphatic: No symptoms reported Neurological/Psychological: No symptoms reported Physical Exam - Vital signs Vitals: Temp Pulse Resp BP Pulse Ox 97.5 F 90 16 151/96 H 97 07/13/19 07:17 07/13/19 07:17 07/13/19 07:17 07/13/19 07:17 07/13/19 07:17 - Notes Notes: PHYSICAL EXAMINATION:reviewed vital signs by RN GENERAL: Well-appearing, well-nourished and in no acute distress. HEAD: Atraumatic, normocephalic. EYES: Pupils equal round and reactive to light, extraocular movements intact, conjunctiva are normal. ENT: TM intact with bilateral serous effusion, no erythema. Nares boggy bilaterally, oropharynx with erythema without exudates. Moist mucous membranes. NECK: Normal range of motion, supple without lymphadenopathy LUNGS: Decreased breath sounds in bilateral upper lobes, No wheezes rales or rhonchi. HEART: Regular rate and rhythm without murmurs. Able to reproduce chest pain on palpation of anterior chest, patient states this is similar to the chest pain that brought her to the emergency room ABDOMEN: Soft, nontender, nondistended abdomen. No guarding, no rebound. No masses appreciated. Female : deferred Musculoskeletal: Normal range of motion, no pitting or edema. No cyanosis. NEUROLOGICAL: Cranial nerves grossly intact. Normal speech, normal gait. Normal sensory, motor exams PSYCH: Normal mood, normal affect. SKIN: Warm, Dry, normal turgor, no rashes or lesions noted. Course - Re-evaluation Re-evalutation: 07/13/19 10:13 Afebrile vital stable no distress. Nurse's notes reviewed. CBC negative for leukocytosis or anemia, CMP negative for hepatic or renal dysfunction, no electrolyte disturbances. First set of troponin negative. I was able to reproduce the chest pain that brought patient to the emergency room on palpation of her anterior chest. After breathing treatment, patient's breath sounds are clear to auscultation throughout. Chest x-ray was negative for any acute findings such as pneumonia or pneumothorax per radiology. EKG negative for STEMI, no ST segment elevations, no changes from previous EKG. 2 sets of troponins negative and since this started last night. We will be sending wojciech saunders home with a rescue inhaler, Tessalon Perles, prednisone as well as an antibiotic for bacterial bronchitis due to having this cough for last 2 weeks with green-yellow productive cough, although there is no pneumonia on chest x- ray, this patient I believe is starting a bacterial infection which requires antibiotics. After performing a Medical Screening Examination, I estimate there is LOW risk for RUPTURED ESOPHAGUS, PNEUMOTHORAX, PULMONARY EMBOLISM, ACUTE CORONARY SYNDROME, OR THORACIC AORTIC DISSECTION, thus I consider the discharge disposition reasonable. I have reevaluated this patient multiple times and no significant life threatening changes are noted. The patient and I have discussed the diagnosis and risks, and we agree with discharging home with close follow- up. We also discussed returning to the Emergency Department immediately if new or worsening symptoms occur. We have discussed the symptoms which are most concerning (e.g., bloody sputum, worsening pain or shortness of breath) that necessitate immediate return. - Vital Signs Vital signs: Temp Pulse Resp BP Pulse Ox 98 F 90 21 H 173/73 H 96 07/13/19 13:28 07/13/19 07:17 07/13/19 13:01 07/13/19 13:01 07/13/19 13:01 - Laboratory Result Diagrams: 07/13/19 07:56 07/13/19 07:56 Laboratory results interpreted by me: 07/13/19 07:56 Eos % (Auto) 8.6 H Discharge - Discharge Clinical Impression: Cough, Costochondritis, acute Condition: Stable Disposition: HOME, SELF-CARE Instructions: Bronchitis ([facility]), Chest Wall Pain ([facility]), Costochondritis ([facility]), Cough Suppressant & Expectorant Medications, Chest Pain of Unclear Cause ([facility]) Additional Instructions: Your chest x-ray was negative for pneumonia or pneumothorax. Your blood work was normal. We did do a work-up today for any myocardial infarction. You will be treated for bronchitis with antibiotic steroid rescue inhaler and Tessalon Perles. Make sure you cough at least twice an hour, taking deep breaths. Be sure to take your medications with food to prevent GI upset as well as eating yogurt to prevent loose stool. Take [id number] ibuprofen and Tylenol as needed for aches and pains as well as fever. Please follow-up with your primary care provider tomorrow for re evaluation. Return immediately for any new or worsening symptoms. Follow up with primary care provider, call tomorrow to make followup appointment. Prescriptions: Albuterol Sulfate [Proair Respiclick] 90 mcg IH Q4HP PRN #1 aer.pow.[id number] PRN Reason: Benzonatate [Tessalon Perles 100 mg Capsule] 100 mg PO Q8HP PRN #20 capsule PRN Reason: Prednisone [Deltasone 20 mg Tablet] 3 tab PO DAILY 5 Days #15 tablet Doxycycline Hyclate 100 mg PO BID #20 capsule Referrals: NADINE DIANE FNP-C [Primary Care Provider] - Follow up tomorrow JEFFRY ZAIDI MD [ACTIVE STAFF] - Follow up in 3-5 days (1-2 days)
[2019-07-13 09:36] LABS: CREATINE KINASE MB 0.58 ng/mL (<4.55)
[2019-07-13 09:38] LABS: TROPONIN I < 0.012 ng/mL
[2019-07-13] MEDS ORDERED: IPRATROPIUM/ALBUTEROL 0.5-2.5 MG/3 ML AMPUL NEB ONE (09:39)
[2019-07-13] MEDS ORDERED: ASPIRIN 81 MG TABLET, CHEWABLE PO ONE (10:31)
[2019-07-13 13:24] VITALS: BP 173/73
--- NOTE | 2019-07-13 19:33 | EKG REPORT ---
SEVERITY:- ABNORMAL ECG - SINUS RHYTHM LEFT VENTRICULAR HYPERTROPHY : Confirmed by: Jael New MD 13-Jul-2019 19:33:06
== END 2019-07-13 13:28 | disposition home or self-care (01) ==
LOC: ER 07:09
DX: R06.2 Wheezing (principal); M94.0 Chondrocostal junction syndrome [Tietze]; R05 Cough; Z90.49 Acquired absence of other specified parts of digestive tract
CPT/HCPCS: 93005; 94640; 99284; 36415; 82553; 82550; 85025; 80053; 84484; 71046; 93010; J7620

== ENCOUNTER 2019-08-29 06:45 | Day surgery (SDC) | payer MEDICAID ==
[2019-08-29] MEDS ORDERED: PROPOFOL INJ 200 MG/20 ML VIAL IV ONE (07:39)
[2019-08-29] MEDS ORDERED: LIDOCAINE 2% INJ-PF (20 MG/ML) 10 ML AMPUL ONE (07:40)
[2019-08-29 09:26] VITALS: BP 168/86
--- NOTE | 2019-08-29 12:35 | Operative Report ---
Operative Report DATE OF SURGERY: 08/29/19 Operative Report: The risk, benefits and alternatives of the procedure including the risk of bleeding, perforation requiring surgery have been explained to the patient in detail and informed consent has been obtained. Timeout was called. Propofol medication is administered. Rectal examination is done which did not reveal any masses, tears or fissures. An Olympus videoscope was introduced into the patient's rectum. The scope was then gradually advanced all the way to the cecum. Prep is good. All the various segments of the colon evaluated. Retroflexion maneuvers performed. Following completion of the colonoscopy upper endoscopy is done. PREOPERATIVE DIAGNOSIS: Personal history of polyp. Family history of stomach cancer POSTOPERATIVE DIAGNOSIS: Esophageal rings and furrows suggestive of eosinophilic esophagitis. Esophageal ulcer. Hiatal hernia. Gastritis status post biopsy. Right side colon inflammation status post biopsy. Diverticulosis without any evidence of diverticulitis. Internal hemorrhoids OPERATION: Colonoscopy with biopsy. EGD with biopsy SURGEON: BARTOLO MARTINEZ ANESTHESIA: LMAC TISSUE REMOVED OR ALTERED: As noted above. COMPLICATIONS: None. ESTIMATED BLOOD LOSS: None. INTRAOPERATIVE FINDINGS: As noted above. PROCEDURE: Patient tolerated the procedure well. No immediate postprocedure complications are noted. Patient is discharged in good condition. Discharge date 08/29/2019. Discharge diet: Regular. Discharge activity: Regular. 2 to 3-week follow-up to discuss findings. Patient is instructed to call the office or proceed to the emergency room should there be any further problems or questions. 5-year surveillance colonoscopy.
== END 2019-08-29 09:24 | disposition home or self-care (01) ==
LOC: END 06:45
PROVIDERS: ATTEND Internal Medicine Gastroenterology
DX: Z12.11 Encounter for screening for malignant neoplasm of colon (principal); K52.9 Noninfective gastroenteritis and colitis, unspecified; K57.30 Diverticulosis of large intestine without perforation or abscess without bleeding; K64.8 Other hemorrhoids; K22.2 Esophageal obstruction; K44.9 Diaphragmatic hernia without obstruction or gangrene; K22.10 Ulcer of esophagus without bleeding; K29.50 Unspecified chronic gastritis without bleeding; Z80.0 Family history of malignant neoplasm of digestive organs; Z86.010 Personal history of colon polyps; I10 Essential (primary) hypertension; Z79.51 Long term (current) use of inhaled steroids; Z79.899 Other long term (current) drug therapy
CPT/HCPCS: 43239; 45380; 88342 ×2; 88305 ×2; 88313 ×2; 00813; J2704; J3490; 813

== ENCOUNTER 2019-09-02 14:00 | Emergency (ER) | payer MEDICAID ==
[2019-09-02] MEDS ORDERED: KETOROLAC TROMETHAMINE INJ/PF 30 MG/1 ML SDV IV ONE ×2 (14:35→17:31)
[2019-09-02] MEDS ORDERED: NORMAL SALINE 1000 ML 1,000 ML IV ONE (14:35)
--- NOTE | 2019-09-02 14:39 | ER Document Report ---
ED Medical Screen (RME) - General Chief Complaint: Lower Abdominal Pain Stated Complaint: ABDOMINAL PAIN Time Seen by Provider: 09/02/19 14:31 Primary Care Provider: NADINE DIANE FNP-C [Primary Care Provider] - Follow up as needed TRAVEL OUTSIDE OF THE [place] IN LAST 30 DAYS: No - HPI Notes: 09/02/19 14:37 63-year-old female with a history of diverticulosis presents to the emergency room with complaints of abdominal pain in the left lower quadrant that started 2 days ago. Patient states she did have 2 bowel movements today, reports she had a colonoscopy and endoscopy done on August 29, she is still waiting for reports. Patient states she is felt feverish. Denies any vomiting nausea, no chest pain or shortness of breath. Patient has tried ibuprofen for pain without relief. Has been eating and drinking without issues. I have greeted and performed a rapid initial assessment of this patient. A comprehensive ED assessment and evaluation of the patient, analysis of test results and completion of the medical decision making process will be conducted by additional ED providers. PHYSICAL EXAMINATION: GENERAL: Well-appearing, well-nourished and in no acute distress. CV: s1, s2 regular LUNGS: No respiratory distress Musculoskeletal: Normal range of motion abd: Left lower quadrant abdominal pain. No CVA tenderness appreciated bilaterally NEUROLOGICAL: Normal speech, normal gait. SKIN: Warm, Dry, normal turgor, no rashes or lesions noted. - Related Data Allergies/Adverse Reactions: No Known Allergies Allergy (Verified 09/02/19 14:29) Home Medications: depakote, risperdal Past Medical History - Social History Chew tobacco use (# tins/day): No Frequency of alcohol use: None Drug Abuse: None - Past Medical History Cardiac Medical History: Denies: Hx Coronary Artery Disease, Hx Heart Attack, Hx Hypertension Pulmonary Medical History: Denies: Hx Asthma, Hx Bronchitis, Hx COPD, Hx Pneumonia Neurological Medical History: Denies: Hx Cerebrovascular Accident, Hx Seizures Renal/ Medical History: Denies: Hx Peritoneal Dialysis Musculoskeltal Medical History: Denies Hx Arthritis, Reports Hx Musculoskeletal Deformity, Reports Hx Musculoskeletal Trauma - States she has required PT for knee and back Psychiatric Medical History: Reports: Hx Anxiety, Hx Depression Past Surgical History: Reports: Hx Cholecystectomy - gallbladder sx in past, Hx Vascular Surgery - Vein stripping - Immunizations Hx Diphtheria, Pertussis, Tetanus Vaccination: Yes Physical Exam - Vital signs Vitals: Temp Pulse Resp BP Pulse Ox 98.1 F 97 18 149/97 H 94 09/02/19 14:12 09/02/19 14:12 09/02/19 14:12 09/02/19 14:12 09/02/19 14:12 Course - Vital Signs Vital signs: Temp Pulse Resp BP Pulse Ox 98.1 F 97 18 149/97 H 94 09/02/19 14:12 09/02/19 14:12 09/02/19 14:12 09/02/19 14:12 09/02/19 14:12 Doctor's Discharge - Discharge Referrals: NADINE DIANE, VIPUL-C [Primary Care Provider] - Follow up as needed
[2019-09-02 15:36] LABS: APPEARANCE,URINE CLEAR; BILIRUBIN,URINE NEGATIVE (NEGATIVE); COLOR,URINE STRAW; GLUCOSE, URINE NEGATIVE (NEGATIVE); KETONES,URINE NEGATIVE (NEGATIVE); LEUKOCYTE ESTERASE,URINE NEGATIVE (NEGATIVE); NITRITE,URINE NEGATIVE (NEGATIVE); PROTEIN,URINE NEGATIVE (NEGATIVE); URINE SPECIFIC GRAVITY 1.008; UROBILINOGEN,URINE NEGATIVE mg/dL (<2.0)
[2019-09-02 17:24] LABS: ABSOLUTE BASOPHILS # (AUTO) 0.1 10^3/uL (0.0-0.2); ABSOLUTE EOSINOPHILS # (AUTO) 0.4 10^3/uL (0.0-0.6); ABSOLUTE LYMPHOCYTES (AUTO) 3.3 10^3/uL (0.5-4.7); ABSOLUTE MONOCYTES (AUTO) 0.7 10^3/uL (0.1-1.4); ABSOLUTE NEUT (AUTO) 4.2 10^3/uL (1.7-8.2); BASOPHILS % (AUTO) 1.2 % (0-2); HEMATOCRIT 36.3 % (36.0-47.0); HEMOGLOBIN 12.5 g/dL (12.0-15.5); LYMPHOCYTES % (AUTO) 38.4 % (13-45); MEAN CORPUSCULAR HEMOGLOBIN 31.4 pg (27.0-33.4); MEAN CORPUSCULAR HGB CONC 34.5 g/dL (32.0-36.0); MEAN CORPUSCULAR VOLUME 91 fl (80-97); MONOCYTES % (AUTO) 7.8 % (3-13); PLATELET COUNT 258 10^3/uL (150-450); RED BLOOD COUNT 3.99 10^6/uL (3.72-5.28); RED CELL DISTRIBUTION WIDTH 13.9 % (11.5-14.0); SEGMENTED NEUTROPHILS % (AUTO) 48.6 % (42-78); TOTAL CELLS COUNTED % (AUTO) 100 %; WHITE BLOOD COUNT 8.7 10^3/uL (4.0-10.5)
[2019-09-02 17:45] LABS: ALBUMIN 4.1 g/dL (3.5-5.0); ALKALINE PHOSPHATASE 65 U/L (38-126); ANION GAP 11 (5-19); ASPARTATE AMINO TRANSFERASE 24 U/L (14-36); BILIRUBIN,DIRECT 0.2 mg/dL (0.0-0.4); BILIRUBIN,TOTAL 0.3 mg/dL (0.2-1.3); BLOOD UREA NITROGEN 12 mg/dL (7-20); CALCIUM 9.3 mg/dL (8.4-10.2); CARBON DIOXIDE 25 mmol/L (22-30); CHLORIDE 106 mmol/L (98-107); GLUCOSE 92 mg/dL (75-110); TOTAL PROTEIN 7.1 g/dL (6.3-8.2)
--- NOTE | 2019-09-02 18:15 | ER Document Report ---
ED General - General Chief Complaint: Lower Abdominal Pain Stated Complaint: ABDOMINAL PAIN Time Seen by Provider: 09/02/19 14:31 Primary Care Provider: NADINE DIANE FNP-C [Primary Care Provider] - Follow up in 3-5 days BARTOLO MARTINEZ MD [ACTIVE STAFF] - 09/11/19 Mode of Arrival: Ambulatory Information source: Patient Notes: 63-year-old female with history of diverticulitis presents emergency department with complaints of left lower quad abdominal pain that started yesterday. She reports when she woke up she was hurting. She denies vomiting reports she felt warm. She does report that she had 4 large bowel movements yesterday and 2 large bowel movements today. She reports nothing aggravates it or makes it better. She also reports that she had a colonoscopy and EGD on August 29 and she still waiting for the results. Her follow-up visit is September 11. She denies rectal bleeding, she reports last time she voided it felt like it was burning. TRAVEL OUTSIDE OF THE [place] IN LAST 30 DAYS: No - HPI Onset: Yesterday Onset/Duration: Sudden, Persistent Quality of pain: Achy Associated symptoms: None Exacerbated by: Denies Relieved by: Denies Similar symptoms previously: No Recently seen / treated by doctor: No - Related Data Allergies/Adverse Reactions: No Known Allergies Allergy (Verified 09/02/19 14:29) Home Medications: depakote, risperdal Past Medical History - General Information source: Patient - Social History Smoking Status: Former Smoker Chew tobacco use (# tins/day): No Frequency of alcohol use: None - Quit 23 yo Drug Abuse: None - quit 23 yo Lives with: Alone Family History: Arthritis, CVA, DM, Hypertension, Malignancy, Thyroid Disfunction Patient has suicidal ideation: No Patient has homicidal ideation: No - Past Medical History Cardiac Medical History: Denies: Hx Coronary Artery Disease, Hx Heart Attack, Hx Hypertension Pulmonary Medical History: Denies: Hx Asthma, Hx Bronchitis, Hx COPD, Hx Pneumonia Neurological Medical History: Denies: Hx Cerebrovascular Accident, Hx Seizures Renal/ Medical History: Denies: Hx Peritoneal Dialysis GI Medical History: Reports: Hx Diverticulitis Musculoskeletal Medical History: Denies Hx Arthritis, Reports Hx Musculoskeletal Deformity, Reports Hx Musculoskeletal Trauma - States she has required PT for knee and back Psychiatric Medical History: Reports: Hx Anxiety, Hx Depression Past Surgical History: Reports: Hx Cholecystectomy - gallbladder sx in past, Hx Vascular Surgery - Vein stripping - Immunizations Hx Diphtheria, Pertussis, Tetanus Vaccination: Yes Review of Systems - Review of Systems Notes: Review HPI for review of systems., All other systems negative Physical Exam - Vital signs Vitals: Temp Pulse Resp BP Pulse Ox 98.1 F 97 18 149/97 H 94 09/02/19 14:12 09/02/19 14:12 09/02/19 14:12 09/02/19 14:12 09/02/19 14:12 - General General appearance: Appears well, Alert In distress: None - HEENT Head: Normocephalic Eyes: Normal Conjunctiva: Normal Extraocular movements intact: Yes Mucous membranes: Moist Neck: Normal, Supple. No: Lymphadenopathy - Respiratory Respiratory status: No respiratory distress Chest status: Nontender Breath sounds: Normal Chest palpation: Normal - Cardiovascular Rhythm: Regular Heart sounds: Normal auscultation Murmur: No - Abdominal Inspection: Normal Distension: No distension Bowel sounds: Normal Tenderness: Tender - Left lower quad tender to palpate Organomegaly: No organomegaly - Back Back: Normal - Extremities General upper extremity: Normal ROM General lower extremity: Normal ROM - Neurological Neuro grossly intact: Yes Cognition: Normal Orientation: AAOx4 Stephane Coma Scale Eye Opening: Spontaneous Stephane Coma Scale Verbal: Oriented Stephane Coma Scale Motor: Obeys Commands [place] Coma Scale Total: 15 Speech: Normal - Psychological Associated symptoms: Normal affect, Normal mood - Skin Skin Temperature: Warm Skin Moisture: Dry Skin Color: Normal Course - Re-evaluation Re-evalutation: 09/02/19 18:54 63-year-old female presents emergency department with complaints of left lower quad abdominal pain. Reports it started yesterday. She reports some nausea denies vomiting. Reports she felt a little bit warm but did not take her temperature. Reports she does have a history of diverticulitis but has not had a while. She recently had EGD and colonoscopy completed but is waiting for the results. Patient denies change in diet. Patient reports Toradol relieved her of pain. Labs unremarkable CT does show diverticulitis. Patient was instructed on Cipro and Flagyl. Instructed on her diet. Avoiding foods. She was also instructed to follow-up with her primary care provider within a week and follow- up with Dr. Martinez February 27 as scheduled. She verbalized understanding to all instructions. Patient requesting a sandwich. Laboratory 09/02/19 09/02/19 09/02/19 14:40 16:50 16:50 WBC 8.7 RBC 3.99 Hgb 12.5 Hct 36.3 MCV 91 MCH 31.4 MCHC 34.5 RDW 13.9 Plt Count 258 Lymph % (Auto) 38.4 [place] % (Auto) 7.8 Eos % (Auto) 4.0 Baso % (Auto) 1.2 Absolute Neuts (auto) 4.2 Absolute Lymphs (auto) 3.3 Absolute Monos (auto) 0.7 Absolute Eos (auto) 0.4 Absolute Basos (auto) 0.1 Seg Neutrophils % 48.6 Sodium 141.8 Potassium 4.0 Chloride 106 Carbon Dioxide 25 Anion Gap 11 BUN 12 Creatinine 0.68 Est GFR ( Amer) > 60 Est GFR (MDRD) Non-Af > 60 Glucose 92 Calcium 9.3 Total Bilirubin 0.3 Direct Bilirubin 0.2 Neonat Total Bilirubin Not Reportable Neonat Direct Bilirubin Not Reportable Neonat Indirect Bili Not Reportable AST 24 ALT 18 Alkaline Phosphatase 65 Total Protein 7.1 Albumin 4.1 Lipase 192.5 Urine Color STRAW Urine Appearance CLEAR Urine pH 7.0 Ur Specific [place] 1.008 Urine Protein NEGATIVE Urine Glucose (UA) NEGATIVE Urine Ketones NEGATIVE Urine Blood NEGATIVE Urine Nitrite NEGATIVE Urine Bilirubin NEGATIVE Urine Urobilinogen NEGATIVE Ur Leukocyte Esterase NEGATIVE Urine RBC (Auto) 1 Squamous Epi Cells Auto <1 Urine Mucus (Auto) RARE Urine Ascorbic Acid NEGATIVE Abdomen/Pelvis CT 09/02/19 14:35 IMPRESSION: Findings as detailed above are consistent with an acute uncomplicated diverticulitis of the sigmoid colon. 09/02/19 19:18 - Vital Signs Vital signs: Temp Pulse Resp BP Pulse Ox 98.1 F 97 18 149/97 H 94 09/02/19 14:12 09/02/19 14:12 09/02/19 14:12 09/02/19 14:12 09/02/19 14:12 - Laboratory Result Diagrams: 09/02/19 16:50 09/02/19 16:50 - Diagnostic Test Radiology reviewed: Image reviewed, Reports reviewed Discharge - Discharge Clinical Impression: Abdominal pain, Diverticulitis Condition: Stable Disposition: HOME, SELF-CARE Instructions: Abdominal Pain ([facility]), Ciprofloxacin ([facility]), Diverticulitis ([facility]), Metronidazole ([facility]) Additional Instructions: *You have been evaluated for abdominal pain, diverticulitis *Take medication as prescribed *Clear liquid diet advance as tolerated *Follow up with a primary care provider within for recheck Up with your printing pressman September 11 as scheduled *Return to ED for worsening condition, changes, needs *Return to ED if not better in 24 hours Prescriptions: Ciprofloxacin HCl [Cipro 500 mg Tablet] 500 mg PO BID #20 tablet Metronidazole [Flagyl 500 mg Tablet] 500 mg PO TID #21 tablet Referrals: NADINE DIANE, VIPUL-C [Primary Care Provider] - Follow up in 3-5 days BARTOLO MARTINEZ MD [ACTIVE STAFF] - 09/11/19
--- NOTE | 2019-09-02 18:52 | RADIOLOGY REPORT (SQ) ---
EXAM DESCRIPTION: CT ABD/PELVIS WITH IV ONLY COMPLETED DATE/TIME: 09/02/2019 6:08 pm REASON FOR STUDY: LLQ abd pain, hx of diverticulitis COMPARISON: None. TECHNIQUE: CT scan of the abdomen and pelvis performed using helical scanning technique with dynamic intravenous contrast injection. No oral contrast. Images reviewed with lung, soft tissue, and bone windows. Reconstructed coronal and sagittal MPR images reviewed. Delayed images for evaluation of the urinary system also acquired. All images stored on PACS. All CT scanners at this facility use dose modulation, iterative reconstruction, and/or weight based d osing when appropriate to reduce radiation dose to as low as reasonably achievable (ALARA). [facility]: Dose Right [facility]: CareDose [facility]: Dose Right [facility]: Teradose 4D [facility]: Sticher CONTRAST TYPE AND DOSE: Contrast/concentration: Isovue 350.00 mg/ml; Total Contrast Delivered: 98.0 ml; Total Saline Delivered: 28.4 ml RENAL FUNCTION: GFR > 60. RADIATION DOSE: CT Rad equipment meets quality standard of care and radiation dose reduction techniq ues were employed. CTDIvol: 12.9 - 17.4 mGy. DLP: 1598 mGy-cm. LIMITATIONS: None. FINDINGS: LOWER CHEST: No acute findings. LIVER: The morphology of the liver is non cirrhotic. The portal veins are patent. There is no hepat ic mass. SPLEEN: No splenomegaly or splenic mass. PANCREAS: No acute abnormality of the pancreas. GALLBLADDER: The gallbladder is surgically absent. ADRENAL GLANDS: No mass or asymmetry. RIGHT KIDNEY AND URETER: No solid masses. No calcifications. No hydronephrosis or hydroureter. LEFT KIDNEY AND URETER: No solid masses. No calcifications. No hydronephrosis or hydroureter. AORTA AND VESSELS: No aneurysm or dissection of the abdominal aorta. RETROPERITONEUM: No retroperitoneal adenopathy, hemorrhage or mass. BOWEL AND PERITONEAL CAVITY: There are diverticula throughout the transverse, descending and sigmoid colons. There is a short segment of mural thickening involving the sigmoid colon that is associated with inflammatory stranding of the pericolonic fat and thickening of the adjacent peritoneal reflecti ons. There is no extraluminal collection, pneumatosis or free intraperitoneal air. There is also no bowel obstruction, free intraperitoneal fluid, or omental inflammation. APPENDIX: Normal. PELVIS: The punctate calcification in the uterus could represent a fibroid. There is no abnormality of the adnexa that is apparent on CT. The urinary bladder is partially distended. ABDOMINAL WALL: No masses or hernias BONES: No significant or acute findings. OTHER: Hiatal hernia. IMPRESSION: Findings as detailed above are consistent with an acute uncomplicated diverticulitis of the sigmoid colon. TECHNICAL DOCUMENTATION: JOB ID: [id number] Quality ID # [id number]: Final reports with documentation of one or more dose reduction techniques (e.g., Au tomated exposure control, adjustment of the mA and/or kV according to patient size, use of iterative reconstruction technique) 2010 [employer]- All Rights Reserved Reading location - IP/workstation name: [email or web address] [id number]
[2019-09-02] MEDS ORDERED: CIPROFLOXACIN HCL 500 MG TABLET PO ONE (18:57)
[2019-09-02] MEDS ORDERED: METRONIDAZOLE 500 MG TABLET PO ONE (18:57)
[2019-09-02 19:22] VITALS: BP 162/95
== END 2019-09-02 19:27 | disposition home or self-care (01) ==
LOC: ER 14:00
DX: K57.92 Diverticulitis of intestine, part unspecified, without perforation or abscess without bleeding (principal); R10.30 Lower abdominal pain, unspecified; Z90.49 Acquired absence of other specified parts of digestive tract
CPT/HCPCS: 99284; 96361; 96374; 36415; 83690; 85025; 80053; 81001; 74177; J3490 ×2; J1885; J7030

== ENCOUNTER → 2019-09-12 | Outpatient (CLI) | payer MEDICAID ==
--- NOTE | 2019-09-12 08:17 | WOMENS IMAGING REPORT ---
EXAM DESCRIPTION: BILAT SCREENING MAMMO W/CAD COMPLETED DATE/TIME: 09/12/2019 7:59 am REASON FOR STUDY: Z12.31 ENCOUNTER FOR SCREENING MAMMOGRAM FOR MALIGNANT NEOPLASM OF BREAST Z12.31 ENCNTR SCREEN MAMMOGRAM FOR MALIGNANT NEOPLASM OF NANCY COMPARISON: 2017 EXAM PARAMETERS: Standard craniocaudal and mediolateral oblique views of each breast recorded using digital acquisition. Read with the assistance of CAD. .[facility] - [employer] Stenographer Version 9.2 LIMITATIONS: None. FINDINGS: Findings present which are benign by mammographic criteria. No suspicious masses, calcifi cations or architectural distortion. Pertinent benign findings: Benign bilateral breast calcifications and skin calcifications. Benign 8 mm smooth round mammographic mass far upper outer quadrant, smaller than in 2017. Benign mammographic findings may include one or more of the following: Smooth masses, popcorn/rim/co arse calcifications, asymmetries, post-procedure changes, and lesions with long-standing stability. IMPRESSION: BENIGN MAMMOGRAPHIC FINDINGS. BIRADS 2 BREAST DENSITY: b. There are scattered areas of fibroglandular density. BIRAD: ASSESSMENT: 2 BENIGN FINDING(S) RECOMMENDATION: ROUTINE SCREENING Please continue yearly bilateral screening mammography/tomosynthesis in August 2020 COMMENT: The patient has been notified of the results by letter per [place] requirements. Additional no tification policies are in place for contacting patient with suspicious or incomplete findings. Quality ID #[id number]: The [employer] recommends an annual screening mammogram for women aged 40 years or over. This facility utilizes a reminder system to ensure that all patients receive reminder letters, and/or direct phone calls for appointments. This includes reminders for routine scr eening mammograms, diagnostic mammograms, or other Breast Imaging Interventions when appropriate. Th is patient will be placed in the appropriate reminder system. TECHNICAL DOCUMENTATION: FINDING NUMBER: (1) ASSESSMENT: (1) JOB ID: [id number] 2010 [employer]- All Rights Reserved Reading location - IP/workstation name: [email or web address]
== END ==
LOC: WI 06:54
PROVIDERS: ATTEND Nurse Practitioner Family
DX: Z12.31 Encounter for screening mammogram for malignant neoplasm of breast (principal)
CPT/HCPCS: 77067

== ENCOUNTER 2019-09-22 06:47 | Day surgery (SDC) | payer MEDICAID ==
[2019-09-22] MEDS ORDERED: PROPOFOL INJ 200 MG/20 ML VIAL IV ONE (07:47)
[2019-09-22 09:18] VITALS: BP 167/80
--- NOTE | 2019-09-22 12:20 | Operative Report ---
Operative Report DATE OF SURGERY: 09/22/19 Operative Report: The risks benefits and alternatives of the procedure explained to the patient in detail and informed consent is obtained.A GIF Olympus video scope was inserted into the patient's mouth and hypopharynx, the esophagus is identified intubated and insufflated ,the scope was then advanced through the esophagus stomach and duodenum, retroflexion maneuver is done ,the esophagus stomach and first and second portions of the duodenum examined PREOPERATIVE DIAGNOSIS: Maldonado's esophagus POSTOPERATIVE DIAGNOSIS: Maldonado's esophagus status post ablation. Hiatal hernia present OPERATION: EGD with radiofrequency ablation SURGEON: BARTOLO MARTINEZ ANESTHESIA: LMAC TISSUE REMOVED OR ALTERED: As noted above COMPLICATIONS: None. ESTIMATED BLOOD LOSS: None. INTRAOPERATIVE FINDINGS: As noted above PROCEDURE: Patient tolerated the procedure well. No immediate postprocedure complications are noted. Patient is discharged in good condition. Discharge date 09/22/2019. Discharge diet: Regular. Discharge activity: Regular. 2 to 3-week follow-up to discuss findings. Patient is instructed to call the office or proceed to the emergency room should there be any further problems or questions.
== END 2019-09-22 09:14 | disposition home or self-care (01) ==
LOC: END 06:47
PROVIDERS: ATTEND Internal Medicine Gastroenterology
DX: K44.9 Diaphragmatic hernia without obstruction or gangrene (principal); K22.719 Barrett's esophagus with dysplasia, unspecified; K21.9 Gastro-esophageal reflux disease without esophagitis; I10 Essential (primary) hypertension; Z79.899 Other long term (current) drug therapy; K64.8 Other hemorrhoids
CPT/HCPCS: 43270; 00731; J2704; 731

== ENCOUNTER → 2020-01-22 | Outpatient (CLI) | payer MEDICAID ==
--- NOTE | 2020-01-22 17:03 | RADIOLOGY REPORT (SQ) ---
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 TECHNIQUE: Dynamic and static tanner scale and color images acquired of both lower extremity venous sy stems. Selected spectral images acquired with additional compression and augmentation maneuvers. Imag es stored on PACS. LIMITATIONS: None. FINDINGS: RIGHT LEG COMMON FEMORAL AND FEMORAL: Normal phasicity, compression and augmentation. No visualized echogenic m aterial on tanner scale. No defects on color images. POPLITEAL: Normal compression and augmentation. No visualized echogenic material on tanner scale. No de fects on color images. CALF VESSELS: Normal compression and augmentation. No visualized echogenic material on tanner scale. No defects on color image. GSV AND SSV: Normal compression. No visualized echogenic material on tanner scale. No defects on color images. ANY DEEP VENOUS INSUFFICIENCY: The preventive maintenance engineer notes reflux in the mid femoral vein and popliteal vei n ANY EVIDENCE OF POPLITEAL CYST: No. OTHER: No other significant finding. LEFT LEG COMMON FEMORAL AND FEMORAL: Normal phasicity, compression and augmentation. No visualized echogenic m aterial on tanner scale. No defects on color images. POPLITEAL: Normal compression and augmentation. No visualized echogenic material on tanner scale. No de fects on color images. CALF VESSELS: Normal compression and augmentation. No visualized echogenic material on tanner scale. No defects on color images. GSV AND SSV: Normal compression. No visualized echogenic material on tanner scale. No defects on color images. ANY DEEP VENOUS INSUFFICIENCY: The preventive maintenance engineer notes reflux in the mid femoral vein and popliteal vei n. ANY EVIDENCE POPLITEAL CYST: No. OTHER: No other significant finding. IMPRESSION: No evidence of DVT or SVT in either leg. Incidental finding of reflux involving the helen ateral femoral and popliteal veins. TECHNICAL DOCUMENTATION: JOB ID: [id number] 2010 [employer]- All Rights Reserved Reading location - IP/workstation name: [email or web address]
== END ==
LOC: SP 10:30
PROVIDERS: ATTEND Nurse Practitioner Family
DX: M79.89 Other specified soft tissue disorders (principal)
CPT/HCPCS: 93970

== ENCOUNTER 2020-04-13 16:32 | Emergency (ER) | payer MEDICAID ==
--- NOTE | 2020-04-13 17:38 | ER Document Report ---
HPI - HPI Time Seen by Provider: 04/13/20 17:30 Pain Level: 2 Notes: 64-year-old female presents to the emergency room for left ankle swelling and left calf pain for the last 3 weeks. Patient denies any trauma or injury to her left ankle or calf. reports - REPRODUCTIVE Reproductive: DENIES: : - MUSCULOSKELETAL Musculoskeletal: REPORTS: Extremity pain - DERM Skin Color: Normal Past Medical History - Social History Smoking Status: Unknown if Ever Smoked Family History: Arthritis, CVA, DM, Hypertension, Malignancy, Thyroid Disfunction - Past Medical History Cardiac Medical History: Denies: Hx Coronary Artery Disease, Hx Heart Attack, Hx Hypertension Pulmonary Medical History: Denies: Hx Asthma, Hx Bronchitis, Hx COPD, Hx Pneumonia Neurological Medical History: Denies: Hx Cerebrovascular Accident, Hx Seizures - BIPOLAR Renal/ Medical History: Denies: Hx Peritoneal Dialysis GI Medical History: Reports: Hx Diverticulitis Musculoskeletal Medical History: Denies Hx Arthritis, Reports Hx Musculoskeletal Deformity, Reports Hx Musculoskeletal Trauma - States she has required PT for knee and back Psychiatric Medical History: Reports: Hx Anxiety, Hx Depression Past Surgical History: Reports: Hx Cholecystectomy - gallbladder sx in past, Hx Vascular Surgery - Vein stripping - Immunizations Hx Diphtheria, Pertussis, Tetanus Vaccination: Yes Vertical Provider Document - INFECTION CONTROL TRAVEL OUTSIDE OF THE [place] IN LAST 30 DAYS: No Course - Vital Signs Vital signs: Temp Pulse Resp BP Pulse Ox 98.7 F 110 H 18 152/98 H 96 04/13/20 16:36 04/13/20 16:36 04/13/20 16:36 04/13/20 16:36 04/13/20 16:36 Discharge - Discharge Referrals: JASBIR VALERIO NP [Primary Care Provider] - Follow up as needed
--- NOTE | 2020-04-13 18:15 | RADIOLOGY REPORT (SQ) ---
EXAM DESCRIPTION: ANKLE LEFT COMPLETE IMAGES COMPLETED DATE/TIME: 04/13/2020 5:57 pm REASON FOR STUDY: left ankle pain COMPARISON: None. NUMBER OF VIEWS: Three views. TECHNIQUE: AP, lateral, and oblique radiographic images acquired of the left ankle. LIMITATIONS: None. FINDINGS: MINERALIZATION: Normal. BONES: No acute fracture or dislocation. No worrisome bone lesions. Incidental note is made of calc aneal enthesopathy. JOINTS: No effusions. SOFT TISSUES: Circumferential soft tissue edema. OTHER: No other significant finding. IMPRESSION: Circumferential soft tissue edema without underlying osseous injury. TECHNICAL DOCUMENTATION: JOB ID: [id number] 2010 [employer]- All Rights Reserved Reading location - IP/workstation name: [email or web address]
--- NOTE | 2020-04-13 18:29 | ER Document Report ---
ED Medical Screen (RME) - General Chief Complaint: Ankle Pain Stated Complaint: LEFT FOOT,ANKLE SWELLING Time Seen by Provider: 04/13/20 17:30 Primary Care Provider: JASBIR VALERIO NP [NURSE PRACTITIONER] - Follow up as needed TRAVEL OUTSIDE OF THE [place] IN LAST 30 DAYS: No - HPI Notes: 04/13/20 18:17 64-year-old female presents to the emergency room today for complaints of left ankle swelling for the last 3 weeks as well as left calf pain that extends all the way up to her upper thigh. Rechecking patient's heart rate she was in the 120s. Denies any chest pain or shortness of breath. Denies any trauma to her ankle or her calf. Denies any new medications foods or travel. Patient reports she did have a ultrasound of her left lower extremity over the summer and it did not show anything and she never followed up with her primary care provider. I have greeted and performed a rapid initial assessment of this patient. A comprehensive ED assessment and evaluation of the patient, analysis of test results and completion of the medical decision making process will be conducted by additional ED providers. PHYSICAL EXAMINATION: GENERAL: Chronically ill well-nourished and in no acute distress. HEAD: Atraumatic, normocephalic. CV: Tachycardia LUNGS: No respiratory distress Musculoskeletal: Normal range of motion NEUROLOGICAL: Normal speech, normal gait. SKIN: Warm, Dry, normal turgor, no rashes or lesions noted. Pulse ox rechecked twice and heart rate between 110 and 120 04/13/20 18:29 04/13/20 18:43 - Related Data Allergies/Adverse Reactions: No Known Allergies Allergy (Verified 09/02/19 14:29) Past Medical History - Past Medical History Cardiac Medical History: Denies: Hx Coronary Artery Disease, Hx Heart Attack, Hx Hypertension Pulmonary Medical History: Denies: Hx Asthma, Hx Bronchitis, Hx COPD, Hx Pneumonia Neurological Medical History: Denies: Hx Cerebrovascular Accident, Hx Seizures - BIPOLAR Renal/ Medical History: Denies: Hx Peritoneal Dialysis GI Medical History: Reports: Hx Diverticulitis Musculoskeltal Medical History: Denies Hx Arthritis, Reports Hx Musculoskeletal Deformity, Reports Hx Musculoskeletal Trauma - States she has required PT for knee and back Psychiatric Medical History: Reports: Hx Anxiety, Hx Depression Past Surgical History: Reports: Hx Cholecystectomy - gallbladder sx in past, Hx Vascular Surgery - Vein stripping - Immunizations Hx Diphtheria, Pertussis, Tetanus Vaccination: Yes Physical Exam - Vital signs Vitals: Temp Pulse Resp BP Pulse Ox 98.7 F 110 H 18 152/98 H 96 04/13/20 16:36 04/13/20 16:36 04/13/20 16:36 04/13/20 16:36 04/13/20 16:36 Course - Vital Signs Vital signs: Temp Pulse Resp BP Pulse Ox 98.7 F 110 H 18 152/98 H 96 04/13/20 16:36 04/13/20 16:36 04/13/20 16:36 04/13/20 16:36 04/13/20 16:36 Doctor's Discharge - Discharge Referrals: JASBIR VALERIO NP [NURSE PRACTITIONER] - Follow up as needed
[2020-04-13 20:27] VITALS: BP 157/111
--- NOTE | 2020-04-13 20:28 | ER Document Report ---
HPI - HPI Time Seen by Provider: 04/13/20 17:30 Pain Level: 2 Notes: 64 [id number] female presents emergency room for left ankle swelling and left calf pain that is become progressively worse over the last 3 to 4 weeks. Denies any trauma. Patient states that she has had swelling and she is not sure what is going on. Has not tried any elevation, heat, icing, Tylenol or ibuprofen. Patient has not been seen by her primary care provider for this issue, she did s ay though back in January she did have an ultrasound of her left lower extremity and that did not show anything. Denies any history of DVTs. denies fevers, chills, chest pain,palpitations, shortness of breath, dyspnea, nausea, vomiting, diarrhea, abdominal pain, hematuria,blurred vision, double vision, loss of vision, speech changes, LH, dizziness, syncope, headaches, wheezing, ST, URI, neck pain, weakness, bowel or bladder dysfunction, saddle anesthesia, numbness or tingling in bilateral upper or lower extremities equally, muscle paralysis, weakness in bilateral upper or lower extremities equally or rash. Denies IV drug use. MEDICATIONS: I agree with the patient medications as charted by the RN. ALLERGIES: I agree with the allergies as charted by the RN. PAST MEDICAL HISTORY/PAST SURGICAL HISTORY: Reviewed and agree as charted by RN. SOCIAL HISTORY: Reviewed and agree as charted by RN. FAMILY HISTORY: No significant familial comorbid conditions directly related to patient complaint EXAM: Reviewed vital signs as charted by RN. REVIEW OF SYSTEMS:reviewed vital signs by RN CONSTITUTIONAL : Denies fever, chills, or sweats. Denies recent illness. EENT: Denies eye, ear, throat, or mouth pain or symptoms. Denies nasal or sinus congestion or discharge. Denies throat, tongue, or mouth swelling or difficulty swallowing. CARDIOVASCULAR: Denies chest pain. Denies palpitations or racing or irregular heart beat. Denies ankle edema. RESPIRATORY: Denies cough, cold, or chest congestion. Denies shortness of breath, difficulty breathing, or wheezing. GASTROINTESTINAL: Denies abdominal pain or distention. Denies nausea, vomiting, or diarrhea. Denies blood in vomitus, stools, or per rectum. Denies black, tarry stools. Denies constipation. GENITOURINARY: Denies difficulty urinating, painful urination, burning, frequency, blood in urine, or discharge. FEMALE GENITOURINARY: Denies vaginal bleeding, heavy or abnormal periods, irregular periods. Denies vaginal discharge or odor. MUSCULOSKELETAL: Ports left ankle swelling and left calf pain. denies back or neck pain or stiffness. Denies joint pain or swelling. SKIN: Denies rash, lesions or sores. HEMATOLOGIC : Denies easy bruising or bleeding. LYMPHATIC: Denies swollen, enlarged glands. NEUROLOGICAL: Denies confusion or altered mental status. Denies passing out or loss of consciousness. Denies dizziness or lightheadedness. Denies headache. Denies weakness or paralysis or loss of use of either side. Denies problems with gait or speech. Denies sensory loss, numbness, or tingling. Denies seizures. PSYCHIATRIC: Denies anxiety or stress. Denies depression, suicidal ideation, or homicidal ideation. ALL OTHER SYSTEMS REVIEWED AND NEGATIVE. PHYSICAL EXAMINATION: GENERAL: Well-appearing, well-nourished and in no acute distress. HEAD: Atraumatic, normocephalic. EYES: Pupils equal round and reactive to light, extraocular movements intact, conjunctiva are normal. ENT: Nares patent, oropharynx clear without exudates. Moist mucous membranes. NECK: Normal range of motion, supple without lymphadenopathy LUNGS: Breath sounds clear to auscultation bilaterally and equal. No wheezes rales or rhonchi. HEART: Regular rate and rhythm without murmurs ABDOMEN: Soft, nontender, nondistended abdomen. No guarding, no rebound. No masses appreciated. Female : deferred Musculoskeletal: Normal range of motion, no pitting or edema. No cyanosis. scant left calf tenderness with palpation to calf. negative venkat's sign. anterior and posterior drawer test negative.Dtr + 2 in BLE. Full motor and sensory function. no ecchymosis or abrasions noted. distal pulses + 2 bilaterally and equally. Bilateral lower extremity without deformity or asymmetry. Noted soft tissue swelling around left ankle, non-pitting edema. No overlying erythema, warmth, discoloration. No lesions or break in the skin integrity. No evidence of compartment syndrome, lymphadenopathy, gangrene. No palpable cords or evidence of thrombophlebitis. squeeze test negative. dtr +2 BLE. Limited APROM. distal pulses + 2 BLE equally. Full motor and sensory function of bilateral lower extremities. No noted open wounds or abrasion. Normal gait. Peroneal nerve is intact with strong eversion and plantar flexion. Negative anterior drawer test. muscle strength 5/5 in BLE equally. NEUROLOGICAL: Cranial nerves grossly intact. Normal speech, normal gait. Normal sensory, motor exams PSYCH: Normal mood, normal affect. SKIN: Warm, Dry, normal turgor, no rashes or lesions noted. Dictation was performed using redIT voice recognition software - REPRODUCTIVE Reproductive: DENIES: : - MUSCULOSKELETAL Musculoskeletal: REPORTS: Extremity pain - DERM Skin Color: Normal Past Medical History - General Information source: Patient - Social History Smoking Status: Unknown if Ever Smoked Family History: Arthritis, CVA, DM, Hypertension, Malignancy, Thyroid Disfunction - Past Medical History Cardiac Medical History: Denies: Hx Coronary Artery Disease, Hx Heart Attack, Hx Hypertension Pulmonary Medical History: Denies: Hx Asthma, Hx Bronchitis, Hx COPD, Hx Pneumonia Neurological Medical History: Denies: Hx Cerebrovascular Accident, Hx Seizures - BIPOLAR Renal/ Medical History: Denies: Hx Peritoneal Dialysis GI Medical History: Reports: Hx Diverticulitis Musculoskeletal Medical History: Denies Hx Arthritis, Reports Hx Musculoskeletal Deformity, Reports Hx Musculoskeletal Trauma - States she has required PT for knee and back Psychiatric Medical History: Reports: Hx Anxiety, Hx Depression Past Surgical History: Reports: Hx Cholecystectomy - gallbladder sx in past, Hx Vascular Surgery - Vein stripping - Immunizations Hx Diphtheria, Pertussis, Tetanus Vaccination: Yes Vertical Provider Document - CONSTITUTIONAL Agree With Documented VS: Yes Exam Limitations: No Limitations General Appearance: WD/WN - INFECTION CONTROL TRAVEL OUTSIDE OF THE [place] IN LAST 30 DAYS: No Course - Re-evaluation Re-evalutation: 04/13/20 21:25 Afebrile tachycardic on triage at 110, I rechecked her heart rate and it was 120. Patient states that sometimes her heart rate does run high, she is denying of any shortness of breath or chest pain. At this point in time I did order an EKG. on EKG her heart rate was 64 patient's venous Doppler was negative for DVT, left ankle x-ray did show circumferential swelling but no fracture dislocation or foreign body. Patient refused any blood work. On recheck of heart rate patient's heart rate was less than 100. So I did not feel the need to do any further blood work. Or further evaluation. Discussed with patient that she absolutely has to follow-up with an orthopedic radiologic technologist because she has a circumferential edema to left ankle. Discussed with patient that she also needs to follow-up with her primary care provider. Patient was given a left Aircast as well as crutches so she does not bear full weight on it so she can keep foot elevated. Discussed compression stockings, limiting her salt intake, elevating her legs, etc. after performing a Medical Screening Examination, I estimate there is LOW risk for OPEN FRACTURE, COMPARTMENT SYNDROME, DEEP VENOUS THROMBOSIS, ACUTE TENDON RUPTURE, or NEUROVASCULAR INJURY thus I consider the discharge disposition reasonable. I have reevaluated this patient multiple times and no significant life threatening changes are noted. The patient and I have discussed the diagnosis and risks, and we agree with discharging home to closely follow-up with their primary doctor or the referral orthopedist with the understanding that symptoms and presentations can change. We also discussed returning to the Emergency Department immediately if new or worsening symptoms occur. We have discussed the symptoms which are most concerning (e.g., changing or worsening pain, numbness, weakness) that necessitate immediate return - Vital Signs Vital signs: Temp Pulse Resp BP Pulse Ox 98.7 F 110 H 18 152/98 H 96 04/13/20 16:36 04/13/20 16:36 04/13/20 16:36 04/13/20 16:36 04/13/20 16:36 - EKG Interpretation by Ar EKG shows normal: Sinus rhythm Rate: Normal Rhythm: NSR Additional EKG results interpreted by ms: 04/13/20 21:26 No STEMI. P axis 35, QRS axis -16, T [place] 15. 04/13/20 21:27 Discharge - Discharge Clinical Impression: Left ankle pain Condition: Stable Disposition: HOME, SELF-CARE Instructions: Curt Wrap ([facility]), Use of Crutches ([facility]), Sprained Ankle ([facility]), Soft Ankle Splint ([facility]) Additional Instructions: Venous ultrasound was negative today. Your x-ray of your ankle was negative it did show some soft tissue swelling. You do need follow-up with orthopedic radiologic technologist within the next 3 days. You were given an Aircast and crutches. Apply heat 20 minutes on 20 minutes off several times a day keep your leg elevated please follow-up with a primary care provider within the next 24 to 48 hours. Your EKG was normal. Your heart rate did return back to normal sinus rhythm Return immediately for any new or worsening symptoms. Follow up with primary care provider, call tomorrow to make followup appointment. Prescriptions: Ibuprofen [Ibu] 600 mg PO Q6HP PRN #20 tablet PRN Reason: Referrals: JASBIR VALERIO, SANDFILL OPERATOR SURFACE [NURSE PRACTITIONER] - Follow up as needed FELICITY DELUNA DO [ACTIVE STAFF] - Follow up as needed
--- NOTE | 2020-04-13 21:23 | RADIOLOGY REPORT (SQ) ---
History: left calf pain . Evaluate for DVT. Findings: Grayscale imaging and Doppler interrogation of the left lower extremity venous system demonstrate normal compressibility, augmentation, and respiratory variability within the common femoral vein, superficial femoral vein, and popliteal vein. The proximal deep veins of the upper calf appear grossly patent as well. Impression: No evidence of DVT as above. copyright 2010 [employer]- All Rights Reserved
--- NOTE | 2020-04-14 07:44 | EKG REPORT ---
SEVERITY:- ABNORMAL ECG - SINUS RHYTHM PROBABLE LEFT ATRIAL ABNORMALITY LEFT VENTRICULAR HYPERTROPHY : Confirmed by: Lito Houston MD 14-Apr-2020 07:43:49
== END 2020-04-13 20:34 | disposition home or self-care (01) ==
LOC: ER 16:32
DX: M25.572 Pain in left ankle and joints of left foot (principal); M25.472 Effusion, left ankle
CPT/HCPCS: 93005; 93010; 93971; 99285

== ENCOUNTER 2020-06-26 20:58 | Emergency (ER) | payer MEDICAID ==
--- NOTE | 2020-06-26 22:30 | ER Document Report ---
ED Hip Pain/Injury - General Chief Complaint: Hip Pain Stated Complaint: BACK/HIP PAIN Time Seen by Provider: 06/26/20 22:19 Primary Care Provider: NEAL SHIRLEY MD [ACTIVE STAFF] - Follow up as needed TRAVEL OUTSIDE OF THE [place] IN LAST 30 DAYS: No - HPI Notes: Patient is a 64 y/o female with a hx of chronic low back pain that presents with left hip pain that began two weeks ago and has recently worsened. She reports right hip pain as well but states it is minimal in comparison. She states her left hip pain radiates down her leg and is worse at the end of the day. She denies any saddle numbness, urinary incontinence or bowel incontinence. - Related Data Allergies/Adverse Reactions: No Known Allergies Allergy (Verified 09/02/19 14:29) Home Medications: depakote. respiradal Past Medical History - General Information source: Patient - Social History Smoking Status: Former Smoker Chew tobacco use (# tins/day): No Frequency of alcohol use: None Drug Abuse: None Family History: Arthritis, CVA, DM, Hypertension, Malignancy, Thyroid Disfunction - Past Medical History Cardiac Medical History: Denies: Hx Coronary Artery Disease, Hx Heart Attack, Hx Hypertension Pulmonary Medical History: Denies: Hx Asthma, Hx Bronchitis, Hx COPD, Hx Pneumonia Neurological Medical History: Denies: Hx Cerebrovascular Accident, Hx Seizures - BIPOLAR Renal/ Medical History: Denies: Hx Peritoneal Dialysis GI Medical History: Reports: Hx Diverticulitis Musculoskeletal Medical History: Denies Hx Arthritis, Reports Hx Musculoskeletal Deformity, Reports Hx Musculoskeletal Trauma - States she has required PT for knee and back Psychiatric Medical History: Reports: Hx Anxiety, Hx Depression Past Surgical History: Reports: Hx Cholecystectomy - gallbladder sx in past, Hx Vascular Surgery - Vein stripping - Immunizations Hx Diphtheria, Pertussis, Tetanus Vaccination: Yes Review of Systems - Review of Systems Constitutional: No symptoms reported EENT: No symptoms reported Cardiovascular: No symptoms reported Respiratory: No symptoms reported Gastrointestinal: No symptoms reported Genitourinary: No symptoms reported Female Genitourinary: No symptoms reported Musculoskeletal: See HPI Skin: No symptoms reported Hematologic/Lymphatic: No symptoms reported Neurological/Psychological: No symptoms reported Physical Exam - Vital signs Vitals: Temp Pulse Resp BP Pulse Ox 98.2 F 86 15 164/97 H 96 06/26/20 21:27 06/26/20 21:27 12/12/20 21:27 06/26/20 21:27 06/26/20 21:27 - Notes Notes: PHYSICAL EXAMINATION: VITALS: Vitals reviewed and within normal limits. GENERAL: Well-appearing, well-nourished and in no acute distress. HEAD: Atraumatic, normocephalic. LUNGS: Breath sounds clear to auscultation bilaterally and equal. No wheezes, rales, or rhonchi. HEART: Regular, rate, and rhythm without murmurs. EXTREMITIES: Left hip nontender with full ROM. Strength and sensation intact. Normal range of motion, no pitting or edema. No cyanosis. BACK: 5 out of 5 strength both distally and proximally bilateral lower extremities. No midline tenderness over the vertebrae. Sensation grossly intact in the bilateral lower extremities. Patient is able to ambulate without difficulty. NEUROLOGICAL: No focal neurological deficits. Moves all extremities spontaneously and on command. PSYCH: Normal mood, normal affect. SKIN: Warm, Dry, normal turgor, no rashes or lesions noted. Course - Re-evaluation Re-evalutation: Patient is a 64-year-old female with history of chronic low back pain who presents with bilateral hip pain, left greater than right, that began 2 weeks ago. Vital signs are within normal limits. On exam, bilateral hips are nontender. No midline tenderness over the bony prominences of the vertebrae, patient able to ambulate without difficulty. Left hip x-ray is negative and shows no acute fractures or degenerative changes. I believe patient's hip pain main be related to her chronic low back pain. Based on history and physical, I have a very low suspicion of a concerning etiology of pain including epidural compression syndrome, spinal infection, transverse myelitis, malignancy, abdominal aortic aneurysm, renal colic, acute lower extremity claudication, neurogenic claudication, ankylosing spondylitis, or other intra-abdominal process. Due to absence of concerning risk factors in h istory and physical as well as absence of rapidly progressive, severe, or bilateral symptoms, will defer further imaging at this point. Plan to manage conservatively with outpatient analgesia and stretching exercises. - Tylenol and ibuprofen as needed for pain - Continue normal daily activities as tolerated by pain - Provide with standard musculoskeletal back pain exercise instructions - Instruct to follow up with primary care provider and orthopedics if symptoms not improving - Provide careful return precautions and concerning symptoms to watch for - Vital Signs Vital signs: Temp Pulse Resp BP Pulse Ox 97.9 F 90 17 152/68 H 98 06/26/20 23:57 06/26/20 23:57 06/26/20 23:57 06/26/20 23:57 06/26/20 23:57 - Laboratory Results Critical Laboratory Results Reviewed: No Critical Results - Radiology Results Radiology Results Interpreted: Hip X-Ray 06/26/20 22:26 IMPRESSION: No acute osseous findings. Critical Radiology Results Reviewed: No Critical Results Discharge - Discharge Clinical Impression: Left hip pain Low back pain Qualifiers: Chronicity: acute Back pain laterality: bilateral Sciatica presence: with sciatica Sciatica laterality: sciatica of left side Qualified Code(s): M54.42 - Lumbago with sciatica, left side Condition: Stable Disposition: HOME, SELF-CARE Instructions: Low Back Pain ([facility]), Stretching Exercises for the Back ([facility]) Referrals: NEAL SHIRLEY MD [ACTIVE STAFF] - Follow up as needed
--- NOTE | 2020-06-26 23:16 | RADIOLOGY REPORT (SQ) ---
CLINICAL HISTORY: hip pain COMPARISON: None. TECHNIQUE: XR HIP 2 OR MORE VIEWS 06/26/2020 10:26 PM NUT SIFTER FINDINGS: There is no fracture. Joint spaces are preserved. Soft tissues are unremarkable. IMPRESSION: No acute osseous findings.
[2020-06-27] VITALS: BP 152/68
== END 2020-06-27 | disposition home or self-care (01) ==
LOC: ER 20:58
DX: M54.42 Lumbago with sciatica, left side (principal); M25.552 Pain in left hip; M25.551 Pain in right hip; G89.29 Other chronic pain; M79.605 Pain in left leg; Z79.899 Other long term (current) drug therapy; Z87.891 Personal history of nicotine dependence
CPT/HCPCS: 99283

== ENCOUNTER → 2020-07-13 | Outpatient (CLI) | payer MEDICAID ==
[2020-07-13 10:53] LABS: ABSOLUTE EOSINOPHILS # (AUTO) 0.3 10^3/uL (0.0-0.6); ABSOLUTE LYMPHOCYTES (AUTO) 1.8 10^3/uL (0.5-4.7); ABSOLUTE MONOCYTES (AUTO) 0.4 10^3/uL (0.1-1.4); ABSOLUTE NEUT (AUTO) 2.6 10^3/uL (1.7-8.2); EOSINOPHILS % (AUTO) 5.3 % (0-6); HEMOGLOBIN 13.7 g/dL (12.0-15.5); LYMPHOCYTES % (AUTO) 35.5 % (13-45); MEAN CORPUSCULAR HEMOGLOBIN 30.9 pg (27.0-33.4); MEAN CORPUSCULAR HGB CONC 35.1 g/dL (32.0-36.0); MEAN CORPUSCULAR VOLUME 88 fl (80-97); MONOCYTES % (AUTO) 7.9 % (3-13); PLATELET COUNT 248 10^3/uL (150-450); RED BLOOD COUNT 4.43 10^6/uL (3.72-5.28); RED CELL DISTRIBUTION WIDTH 14.4 % (11.5-14.0); SEGMENTED NEUTROPHILS % (AUTO) 50.3 % (42-78); TOTAL CELLS COUNTED % (AUTO) 100 %; WHITE BLOOD COUNT 5.2 10^3/uL (4.0-10.5)
[2020-07-13 11:11] LABS: ALBUMIN 4.3 g/dL (3.5-5.0); ALKALINE PHOSPHATASE 79 U/L (38-126); ANION GAP 7 (5-19); ASPARTATE AMINO TRANSFERASE 30 U/L (14-36); BILIRUBIN,DIRECT 0.1 mg/dL (0.0-0.4); BILIRUBIN,TOTAL 0.5 mg/dL (0.2-1.3); BLOOD UREA NITROGEN 9 mg/dL (7-20); CALCIUM 9.5 mg/dL (8.4-10.2); CARBON DIOXIDE 28 mmol/L (22-30); CHLORIDE 105 mmol/L (98-107); CHOLESTEROL 179.79 mg/dL (0-200); GLUCOSE 100 mg/dL (75-110); POTASSIUM 4.4 mmol/L (3.6-5.0); TOTAL PROTEIN 7.3 g/dL (6.3-8.2); TRIGLYCERIDES 83 mg/dL (<150)
[2020-07-13 11:22] LABS: DIRECT LDL 91 mg/dL (<100)
[2020-07-13 11:26] LABS: FREE T4 (FREE THYROXINE) 1.25 ng/dL (0.78-2.19)
[2020-07-13 11:40] LABS: THYROID STIMULATING HORMONE 1.67 uIU/mL (0.47-4.68)
== END ==
LOC: OD 09:28
PROVIDERS: ATTEND Physician Assistant
DX: F31.9 Bipolar disorder, unspecified (principal); Z79.899 Other long term (current) drug therapy
CPT/HCPCS: 36415; 80053; 80061; 80164; 83036; 84439; 84443; 85025